=== PATIENT | female | born 1950 | race Caucasian/White ===

== ENCOUNTER 2023-11-09 12:00 | Emergency (ER) | payer MEDICARE, OTHER, SELFPAY ==
[2023-11-09] VITALS (21 sets, daily range): BP systolic 136; BP diastolic 90; PULSE 104–129; RESP 15–28; TEMP 36.4; O2SAT 89–99; BMI 17.5
--- NOTE | 2023-11-09 12:22 | ECG_ITS ---
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
--- NOTE | 2023-11-09 12:22 | XR_ITS ---
The [address] [address] Patient Name: DEVIKA LOPEZ MRN: [id number] date: 1950 Sex: F Assigned Patient Location: ER Current Patient Location: ER Accession/Order Number: [id number] Exam Date: 11/09/2023 12:53 Report Date: 11/09/2023 13:27 At the request of: MAREK HYDE Procedure: XR chest 1V EXAM: XR chest 1V HISTORY: Tachycardia COMPARISON: Chest study dated 11/23/2012 TECHNIQUE: AP view of the chest was obtained with portable technique at 12:53 PM. FINDINGS: Heart and mediastinal contours are unremarkable in appearance. No acute infiltrate or consolidations are seen. No obvious pneumothorax. Slight convexity of the dorsal spine to the right with mild degenerative changes present. XR/XR chest 1V IMPRESSION: No acute process seen in the chest. Electronically authenticated by: CAMDEN HOLLAND Date: 11/09/2023 13:27
--- NOTE | 2023-11-09 12:25 | ED.GENADUL1 ---
HPI - General Adult General Chief complaint: Arrhythmia/Palpitations Stated complaint: HIGH HEART RATE Time Seen by Provider: 11/09/23 12:16 Source: caregiver Mode of arrival: walk-in Limitations: no limitations History of Present Illness HPI narrative: 73-year-old female company by her niece presents to the emergency department from PCP office where she had her first visit today. She was sent here for evaluation because her heart rate was fast, approximately 140. The patient's niece reports that she has had some mild memory issues recently. She lives by herself. The patient herself does not seem to have any physical complaints other than some chronic back issues. The patient has lost about 30 pounds over the past year. Related Data Home Medications ?Medication ?Instructions ?Recorded ?Confirmed amlodipine 5 mg tablet (Norvasc) 5 mg PO DAILY 11/09/23 11/09/23 insulin aspar prot-insulin aspart 14 unit subcut QAM 11/09/23 11/09/23 100 unit/mL (70-30) subcutaneous pen (Novolog Mix 70-30FlexPen U-100) lisinopril 20 1 tab PO DAILY 11/09/23 11/09/23 mg-hydrochlorothiazide 12.5 mg tablet (Zestoretic) metformin 500 mg tablet 1,000 mg PO BID 11/09/23 11/09/23 simvastatin 20 mg tablet (Zocor) 20 mg PO DAILY 11/09/23 11/09/23 Allergies Allergy/AdvReac Type Severity Reaction Status Date / Time nkda Allergy Uncoded 11/09/23 12:22 Review of Systems ROS Narrative A ten point review of systems is negative except as noted above. [facility] Medical History (Updated 11/09/23 @ 15:21 by Niles Weaver MD) High cholesterol ?E78.00 - Pure hypercholesterolemia, unspecified (ICD-10) Hypertension ?I10 - Essential (primary) hypertension (ICD-10) Diabetes ?E11.9 - Type 2 diabetes mellitus without complications (ICD-10) Exam Narrative Exam Narrative: Nurses note and vital signs reviewed and patient is not hypoxic. General: The patient appears in no apparent distress. Patient is resting comfortably on cart. She is quite thin. Skin: Warm, dry, no pallor noted. There is no rash noted. Head: Normocephalic, atraumatic Eye: Normal conjunctiva, no drainage Ears, Nose, Mouth, and Throat: oral mucosa is moist. Nares patent. Cardiovascular: Regular Rate and Rhythm, mildly tachycardia Respiratory: Patient is in no distress, no accessory muscle use, lungs are clear to auscultation, no wheezing, rales or rhonchi Back: non-tender GI: no tenderness to palpation, no masses appreciated. No rebound, guarding, or rigidity noted. Musculoskeletal: The patient has no evidence of calf tenderness, no pitting edema, symmetrical pulses noted bilaterally Neurological: A&O x4, normal speech, upper and lower extremity strength intact Psychiatric: Cooperative Constitutional Vital Signs, click to edit/add: Last Vital Signs Temp 97.5 F L 11/09/23 12:15 Pulse 106 H 11/09/23 14:30 Resp 16 11/09/23 14:30 BP 136/90 11/09/23 12:15 Pulse Ox 98 11/09/23 14:30 O2 Del Method Room Air 11/09/23 12:15 Course Vital Signs Vital signs: Vital Signs Pulse Oximetry 99 11/09/23 12:10 Temperature 97.5 F L 11/09/23 12:15 Pulse Rate 106 H 11/09/23 14:30 Respiratory Rate 16 11/09/23 14:30 Blood Pressure 136/90 11/09/23 12:15 Pulse Oximetry 98 11/09/23 14:30 Oxygen Delivery Method Room Air 11/09/23 12:15 Medical Decision Making MDM Narrative Medical decision making narrative: Extensive workup here is negative except for elevated blood sugar. She has only been taking her metformin 1 pill twice a day instead of the prescribed 2 pills twice a day. This matter was discussed with the patient and her niece and she will be discharged home. I discussed the case with her PCP and follow-up is arranged for 1 week. Treatment diagnosis and follow-up were discussed thoroughly Differential Diagnosis Differential Diagnosis: Medication noncompliance, diabetes, thyroid disorder, UTI Lab Data Lab results reviewed: Yes I reviewed the patient's lab results Labs: Lab Results 11/09/23 11/09/23 11/09/23 Range/Units 12:32 12:38 14:10 WBC 6.7 (4.0-11.0) 10^3/uL RBC 4.80 (4.20-5.40) 10^6/uL Hgb 14.4 (12.0-16.0) g/dL Hct 42.8 (36.0-48.0) % MCV 89.2 (81.0-99.0) fL MCH 30.0 (26.7-34.0) pg MCHC 33.6 (29.9-35.2) g/dL RDW 12.1 (11.0-15.0) % Plt Count 251 (150-450) 10^3/uL MPV 10.9 (9.5-13.5) fL Neut % (Auto) 48.5 (43.0-75.0) % Lymph % (Auto) 42.4 (20.5-60.0) % [place] % (Auto) 8.0 (1.7-12.0) % Eos % (Auto) 0.6 L (0.9-7.0) % Baso % (Auto) 0.4 (0.2-2.0) % Neut # (Auto) 3.3 (1.4-6.5) 10^3/uL Lymph # (Auto) 2.9 (1.2-3.8) 10^3/uL [place] # (Auto) 0.5 (0.3-0.8) 10^3/uL Eos # (Auto) 0.0 (0.0-0.7) 10^3/uL Baso # (Auto) 0.0 (0.0-0.1) 10^3/uL Abs Immat Gran (auto) 0.01 (0.00-0.03) 10^3/uL Imm/Tot Granulo (auto) 0.1 (0.0-0.5) % Sodium 137 (136-145) mmol/L Potassium 4.0 (3.5-5.1) mmol/L Chloride 99 (98-107) mmol/L Carbon Dioxide 30.1 (21.0-32.0) mmol/L Anion Gap 11.9 BUN 11.0 (7.0-18.0) mg/dL Creatinine 0.67 (0.55-1.02) mg/dL Est GFR ( Amer) >60 (>=60) Est GFR (Non-Af Amer) >60 (>=60) BUN/Creatinine Ratio 16.4 Glucose 426 H (74-106) mg/dL Estimat Average Glucose 338 mg/dL Hemoglobin A1c 13.4 H (4.5-6.2) % Calcium 9.6 (8.5-10.1) mg/dL Total Bilirubin 0.9 (0.2-1.0) mg/dL Direct Bilirubin 0.1 (0.0-0.2) mg/dL AST 15 (15-37) U/L ALT 26 (14-59) U/L Alkaline Phosphatase 113 (46-116) U/L Total Protein 6.8 (6.4-8.2) g/dL Albumin 3.1 L (3.4-5.0) g/dL Globulin 3.7 g/dL Albumin/Globulin Ratio 0.8 Triglycerides 49 (<=150) mg/dL Cholesterol 203 H (<=200) mg/dL LDL Cholesterol, Calc 131.0 mg/dL VLDL Cholesterol 9.8 mg/dL HDL Cholesterol 63 H (40-60) mg/dL Cholesterol/HDL Ratio 3.2 TSH 2.797 (0.358-3.740) uIU/mL Free T4 1.21 (0.76-1.46) ng/dL Free T3 2.36 (2.18-3.98) pg/mL Urine Color Yellow (YELLOW) Urine Clarity Clear (CLEAR) Urine pH 5.5 (5.0-9.0) Ur Specific [place] 1.025 (1.005-1.025) Urine Protein Negative (NEG/TRACE) mg/dL Urine Glucose (UA) >=1000 A (NEGATIVE) mg/dL Urine Ketones 15 A (NEGATIVE) mg/dL Urine Occult Blood Negative (NEGATIVE) Urine Nitrite Negative (NEGATIVE) Urine Bilirubin Negative (NEGATIVE) Urine Urobilinogen 0.2 (0.2-1.0) EU/dL Ur Leukocyte Esterase Negative (NEGATIVE) Urine RBC None seen (0-2) #/HPF Urine WBC None seen (NONE SEEN) #/HPF Ur Squamous Epith Cells Few A (NONE/RARE) #/LPF Urine Bacteria None seen (NONE SEEN) #/HPF Urine Mucus None seen (NONE SEEN) Ur Random Creatinine 62.91 (20.00-300.00) mg/dL Ur Random Microalbumin 2.0 (<=30.0) mg/dL Microalb/Creat Ratio 31.7 H (0.0-29.9) mg/g POC Glucose 395 H (74-106) mg/dL Imaging Data Chest x-ray: Radiologist's impression: ITS Impressions Chest X-Ray 11/09/23 12:22 IMPRESSION: No acute process seen in the chest. Electronically authenticated by: CAMDEN HOLLAND Date: 11/09/2023 13:[address] 11/09/23 12:22 IMPRESSION: 1. No acute large vascular territory infarct or acute intracranial hemorrhage. 2. Ventriculomegaly slightly out of proportion of the sulci favored to relate to central predominant volume loss with no overt evidence for obstructing hydrocephalus. Direct comparison with priors would be of benefit to evaluate for interval change. Electronically authenticated by: ZEESHAN SHI Date: 11/09/2023 13:20 ECG Data Attestation: I personally reviewed and interpreted this ECG as follows: (EKG on my interpretation shows normal sinus rhythm without acute change) Discharge Plan Discharge Stand Alone Forms: Portal Instructions Chief Complaint: Arrhythmia/Palpitations Clinical Impression: Hyperglycemia Patient Disposition: Home, Self-Care Time of Disposition Decision: 15:20 Condition: Good Mode of Transportation: Private Vehicle Prescriptions / Home Meds: No Action metformin 500 mg tablet 1,000 mg PO BID amlodipine [Norvasc] 5 mg tablet 5 mg PO DAILY lisinopril-hydrochlorothiazide [Zestoretic] 20-12.5 mg tablet 1 tab PO DAILY simvastatin [Zocor] 20 mg tablet 20 mg PO DAILY insulin asp prt-insulin aspart [Novolog Mix 70-30FlexPen U-100] 100 unit/mL (70-30) insulin pen 14 unit subcut QAM Print Language: Polish Instructions: Diabetic Hyperglycemia (ED), Diabetes and Nutrition (ED) Referrals: Lizett Wolff NP [Primary Care Provider] - 1 week
[2023-11-09 12:39] LABS: Glucometer 395 mg/dL (74-106)
[2023-11-09 12:46] LABS: Basophils Percent Auto 0.4 % (0.2-2.0); Eosinophils Percent Auto 0.6 % (0.9-7.0); Hematocrit 42.8 % (36.0-48.0); Hemoglobin 14.4 g/dL (12.0-16.0); Immature Granulocytes Abs Auto 0.01 10^3/uL (0.00-0.03); Immature Granulocytes Pct Auto 0.1 % (0.0-0.5); Lymphocytes Absolute Auto 2.9 10^3/uL (1.2-3.8); Lymphocytes Percent Auto 42.4 % (20.5-60.0); Mean Corpuscular HGB Conc 33.6 g/dL (29.9-35.2); Mean Corpuscular Volume 89.2 fL (81.0-99.0); Mean Platelet Volume 10.9 fL (9.5-13.5); Monocytes Absolute Auto 0.5 10^3/uL (0.3-0.8); Neutrophils Absolute Auto 3.3 10^3/uL (1.4-6.5); Neutrophils Percent Auto 48.5 % (43.0-75.0); Platelet Count 251 10^3/uL (150-450); Red Cell Distribution Width 12.1 % (11.0-15.0); White Blood Count 6.7 10^3/uL (4.0-11.0)
[2023-11-09 13:09] LABS: Estimated Average Glucose 338 mg/dL; Glycohemoglobin A1C 13.4 % (4.5-6.2)
[2023-11-09 13:37] LABS: Alanine Aminotransferase 26 U/L (14-59); Albumin Globulin Ratio 0.8; Albumin Level 3.1 g/dL (3.4-5.0); Alkaline Phosphatase 113 U/L (46-116); Anion Gap 11.9; Aspartate Amino Transferase 15 U/L (15-37); BUN Creatinine Ratio 16.4; Bilirubin Direct 0.1 mg/dL (0.0-0.2); Bilirubin Total 0.9 mg/dL (0.2-1.0); Calcium 9.6 mg/dL (8.5-10.1); Carbon Dioxide 30.1 mmol/L (21.0-32.0); Chloride 99 mmol/L (98-107); Chol HDL Ratio 3.2; Cholesterol 203 mg/dL (<=200); Estimated GFR (African America >60 (>=60); Estimated GFR (Non-African Ame >60 (>=60); Free T3 2.36 pg/mL (2.18-3.98); Globulin 3.7 g/dL; Glucose 426 mg/dL (74-106); HDL Cholesterol 63 mg/dL (40-60); Sodium 137 mmol/L (136-145); Thyroid Stimulating Hormone 2.797 uIU/mL (0.358-3.740); Total Protein 6.8 g/dL (6.4-8.2); Triglycerides 49 mg/dL (<=150); VLDL CHOLESTEROL 9.8 mg/dL
[2023-11-09 13:41] LABS: Free T4 1.21 ng/dL (0.76-1.46)
[2023-11-09 14:36] LABS: Bilirubin Urine NEGATIVE (NEGATIVE); Blood Urine NEGATIVE (NEGATIVE); Clarity Urine CLEAR (CLEAR); Color Urine YELLOW (YELLOW); Glucose Urine UA >=1000 mg/dL (NEGATIVE); Ketones Urine 15 mg/dL (NEGATIVE); Leukocyte Esterase Urine NEGATIVE (NEGATIVE); Nitrite Urine NEGATIVE (NEGATIVE); Protein Urine NEGATIVE (NEG/TRACE); Specific Gravity Urine 1.025 (1.005-1.025); Urobilinogen Urine 0.2 EU/dL (0.2-1.0); pH Urine 5.5 (5.0-9.0)
[2023-11-09 14:42] LABS: Creatinine Urine Random 62.91 mg/dL (20.00-300.00); Microalbum Creatinine Ratio Ur 31.7 mg/g (0.0-29.9)
[2023-11-09 14:47] LABS: Bacteria Urine NONE SEEN #/HPF (NONE SEEN); RBC Urine NONE SEEN #/HPF (0-2); WBC Urine NONE SEEN #/HPF (NONE SEEN)
[2023-11-09 14:48] LABS: Mucus Urine NONE SEEN (NONE SEEN); Squamous Epithelial Cell Urine FEW #/LPF (NONE/RARE)
== END 2023-11-09 15:30 | disposition home or self-care (01) ==
PROVIDERS: Emergency Provider Emergency Medicine; PCP Nurse Practitioner
DX: E11.65 Type 2 diabetes mellitus with hyperglycemia (principal); E78.00 Pure hypercholesterolemia, unspecified; I10 Essential (primary) hypertension; Z79.899 Other long term (current) drug therapy; Z79.84 Long term (current) use of oral hypoglycemic drugs; Z79.4 Long term (current) use of insulin
CPT/HCPCS: 36415; 36416; 70450; 71045; 80048; 80061; 80076; 81001; 82043; 82306; 82570; 82607; 82948; 83036; 84439; 84443; 84481; 85025; 93005; 99285

== ENCOUNTER 2024-01-13 14:19 | Emergency (ER) | payer MEDICARE, OTHER, SELFPAY ==
[2024-01-13] VITALS (11 sets, daily range): BP systolic 143–170; BP diastolic 66–126; PULSE 91–100; TEMP 36.6; O2SAT 96–99; BMI 19.5
--- NOTE | 2024-01-13 14:23 | ECG_ITS ---
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
[2024-01-13 14:30] LABS: Glucometer 61 mg/dL (74-106)
--- NOTE | 2024-01-13 14:33 | ED.GENADUL1 ---
HPI HPI - General Adult General Chief complaint: Altered Mental Status Stated complaint: LOW SUGAR Time Seen by Provider: 01/13/24 14:19 Source: patient and EMR Mode of arrival: ambulance Limitations: no limitations History of Present Illness HPI narrative: Patient presents to ED complaining of altered mentation. Her family went to check on her this morning and found her altered and said her glucose monitor was reading low. They called EMS and when they arrived they said her sugar was in the 30s. She was given D10 and her sugar improved to the 90s. She did have some incontinence of urine at some point from the low blood sugar. No known seizure activity. She says she takes her insulin at night she thought she ate but is not sure how much she really ate. Right now she is alert and oriented and states she is feeling better her sugar is already starting to decrease again and is at 63. We got her some orange juice and ordered her for some food. She has no complaints. No chest pain no abdominal pain no nausea vomiting.Family is unsure how long her blood sugar was low for because they did not see her until this morning. Related Data Home Medications ?Medication ?Instructions ?Recorded ?Confirmed lisinopril 20 1 tab PO DAILY 11/09/23 01/13/24 mg-hydrochlorothiazide 12.5 mg tablet (Zestoretic) metformin 500 mg tablet 1,000 mg PO BID 11/09/23 01/13/24 simvastatin 20 mg tablet (Zocor) 20 mg PO DAILY 11/09/23 01/13/24 amlodipine 2.5 mg tablet 2.5 mg PO DAILY 01/13/24 01/13/24 insulin glargine 100 unit/mL (3 26 unit subcut .hs 01/13/24 01/13/24 mL) subcutaneous pen (Basaglar KwikPen U-100 Insulin) Allergies Allergy/AdvReac Type Severity Reaction Status Date / Time No Known Drug Allergies Allergy Verified 01/13/24 14:24 Opioid HPI Opioid Management Most Recent Opioid Data: No Data to Display Review of Systems ROS Status of ROS 10 or more systems reviewed and unremarkable except as noted in history and below [facility] Medical History (Updated 01/13/24 @ 16:27 by Georgia Mckeon DO) High cholesterol ?E78.00 - Pure hypercholesterolemia, unspecified (ICD-10) Hypertension ?I10 - Essential (primary) hypertension (ICD-10) Diabetes ?E11.9 - Type 2 diabetes mellitus without complications (ICD-10) Exam Narrative Exam Narrative: Time Seen: [] Vital Signs: [Per nurse's notes.] General: [Alert] Skin: [Warm, dry, no rash.] Head: [Normocephalic, atraumatic.] Neck: [Supple, trachea midline.] Eye: [Pupils are equal, round and reactive to light, extraocular movements are intact, normal conjunctiva.] Ears, nose, mouth and throat: oral mucosa moist. Cardiovascular: [Regular rate and rhythm, no murmur.] Respiratory: [Lungs are clear to auscultation, respirations are non-labored, breath sounds are equal.] Chest wall: [No tenderness, no deformity.] Gastrointestinal: [Soft, nontender, non distended, normal bowel sounds.] MSK: 5 out of 5 muscle strength x 4 extremities no calf pain or edema Lymphatics: [No lymphadenopathy.] Psychiatric: [Cooperative, appropriate mood & affect.] Neurological: [Alert and oriented to person, place, time, and situation, no focal neurological deficit observed.] Constitutional Vital Signs, click to edit/add: Last Vital Signs Temp 97.9 F 01/13/24 14:41 Pulse 100 H 01/13/24 15:01 Resp 20 01/13/24 15:01 BP 145/92 H 01/13/24 15:01 Pulse Ox 98 01/13/24 15:01 O2 Del Method Room Air 01/13/24 14:19 Course Vital Signs Vital signs: Vital Signs Pulse Rate 100 H 01/13/24 14:19 Respiratory Rate 18 01/13/24 14:19 Blood Pressure 170/66 H 01/13/24 14:19 Pulse Oximetry 99 01/13/24 14:19 Oxygen Delivery Method Room Air 01/13/24 14:19 Temperature 97.9 F 01/13/24 14:41 Pulse Rate 100 H 01/13/24 15:01 Respiratory Rate 20 01/13/24 15:01 Blood Pressure 145/92 H 01/13/24 15:01 Pulse Oximetry 98 01/13/24 15:01 Oxygen Delivery Method Room Air 01/13/24 14:19 Medical Decision Making MDM Narrative Medical decision making narrative: Patient's labs were nonacute. Urine is negative for infection. Blood sugar has come up nicely after the D10, orange juice and food.Patient's blood sugar is now in the 200s. She thinks she took her morning medication but is in the 100% sure. I instructed the patient to follow-up closely with her family nurse practitioner. Please check blood sugar before giving insulin at night. Make sure she eats before bed if she is taking her insulin at night. Family states that she was having a hard time controlling her blood sugars when she was taking insulin during the day which is why they switched her to taking insulin at night. Return to ED if worsening symptoms. Patient and Family comfortable care plan for home Differential Diagnosis Differential Diagnosis: Hypoglycemia, UTI, electrolyte abnormality Medical Records Medical records reviewed: Yes I reviewed the patient's medical records Lab Data Lab results reviewed: Yes I reviewed the patient's lab results Labs: Lab Results 01/13/24 01/13/24 01/13/24 Range/Units 14:29 14:47 15:12 WBC 9.8 (4.0-11.0) 10^3/uL RBC 4.77 (4.20-5.40) 10^6/uL Hgb 14.3 (12.0-16.0) g/dL Hct 44.4 (36.0-48.0) % MCV 93.1 (81.0-99.0) fL MCH 30.0 (26.7-34.0) pg MCHC 32.2 (29.9-35.2) g/dL RDW 12.8 (11.0-15.0) % Plt Count 255 (150-450) 10^3/uL MPV 10.1 (9.5-13.5) fL Neut % (Auto) 70.2 (43.0-75.0) % Lymph % (Auto) 25.0 (20.5-60.0) % [place] % (Auto) 4.4 (1.7-12.0) % Eos % (Auto) 0.0 L (0.9-7.0) % Baso % (Auto) 0.2 (0.2-2.0) % Neut # (Auto) 6.9 H (1.4-6.5) 10^3/uL Lymph # (Auto) 2.5 (1.2-3.8) 10^3/uL [place] # (Auto) 0.4 (0.3-0.8) 10^3/uL Eos # (Auto) 0.0 (0.0-0.7) 10^3/uL Baso # (Auto) 0.0 (0.0-0.1) 10^3/uL Abs Immat Gran (auto) 0.02 (0.00-0.03) 10^3/uL Imm/Tot Granulo (auto) 0.2 (0.0-0.5) % Sodium 137 (136-145) mmol/L Potassium 3.9 (3.5-5.1) mmol/L Chloride 99 (98-107) mmol/L Carbon Dioxide 30.9 (21.0-32.0) mmol/L Anion Gap 11.0 BUN 13.0 (7.0-18.0) mg/dL Creatinine 0.42 L (0.55-1.02) mg/dL Est GFR ( Amer) >60 (>=60) Est GFR (Non-Af Amer) >60 (>=60) BUN/Creatinine Ratio 31.0 Glucose 81 (74-106) mg/dL Calcium 9.2 (8.5-10.1) mg/dL Total Bilirubin 1.1 H (0.2-1.0) mg/dL AST 24 (15-37) U/L ALT 21 (14-59) U/L Alkaline Phosphatase 117 H (46-116) U/L Total Protein 7.5 (6.4-8.2) g/dL Albumin 3.4 (3.4-5.0) g/dL Globulin 4.1 g/dL Albumin/Globulin Ratio 0.8 Urine Color (YELLOW) Urine Clarity (CLEAR) Urine pH (5.0-9.0) Ur Specific [place] (1.005-1.025) Urine Protein (NEG/TRACE) mg/dL Urine Glucose (UA) (NEGATIVE) mg/dL Urine Ketones (NEGATIVE) mg/dL Urine Occult Blood (NEGATIVE) Urine Nitrite (NEGATIVE) Urine Bilirubin (NEGATIVE) Urine Urobilinogen (0.2-1.0) EU/dL Ur Leukocyte Esterase (NEGATIVE) POC Glucose 61 L 91 (74-106) mg/dL 01/13/24 01/13/24 Range/Units 15:55 16:17 WBC (4.0-11.0) 10^3/uL RBC (4.20-5.40) 10^6/uL Hgb (12.0-16.0) g/dL Hct (36.0-48.0) % MCV (81.0-99.0) fL MCH (26.7-34.0) pg MCHC (29.9-35.2) g/dL RDW (11.0-15.0) % Plt Count (150-450) 10^3/uL MPV (9.5-13.5) fL Neut % (Auto) (43.0-75.0) % Lymph % (Auto) (20.5-60.0) % [place] % (Auto) (1.7-12.0) % Eos % (Auto) (0.9-7.0) % Baso % (Auto) (0.2-2.0) % Neut # (Auto) (1.4-6.5) 10^3/uL Lymph # (Auto) (1.2-3.8) 10^3/uL [place] # (Auto) (0.3-0.8) 10^3/uL Eos # (Auto) (0.0-0.7) 10^3/uL Baso # (Auto) (0.0-0.1) 10^3/uL Abs Immat Gran (auto) (0.00-0.03) 10^3/uL Imm/Tot Granulo (auto) (0.0-0.5) % Sodium (136-145) mmol/L Potassium (3.5-5.1) mmol/L Chloride (98-107) mmol/L Carbon Dioxide (21.0-32.0) mmol/L Anion Gap BUN (7.0-18.0) mg/dL Creatinine (0.55-1.02) mg/dL Est GFR ( Amer) (>=60) Est GFR (Non-Af Amer) (>=60) BUN/Creatinine Ratio Glucose (74-106) mg/dL Calcium (8.5-10.1) mg/dL Total Bilirubin (0.2-1.0) mg/dL AST (15-37) U/L ALT (14-59) U/L Alkaline Phosphatase (46-116) U/L Total Protein (6.4-8.2) g/dL Albumin (3.4-5.0) g/dL Globulin g/dL Albumin/Globulin Ratio Urine Color Lt. yellow (YELLOW) Urine Clarity Clear (CLEAR) Urine pH 5.5 (5.0-9.0) Ur Specific [place] 1.020 (1.005-1.025) Urine Protein Negative (NEG/TRACE) mg/dL Urine Glucose (UA) Negative (NEGATIVE) mg/dL Urine Ketones 15 A (NEGATIVE) mg/dL Urine Occult Blood Negative (NEGATIVE) Urine Nitrite Negative (NEGATIVE) Urine Bilirubin Negative (NEGATIVE) Urine Urobilinogen 1.0 (0.2-1.0) EU/dL Ur Leukocyte Esterase Negative (NEGATIVE) POC Glucose 212 H (74-106) mg/dL ECG Data Attestation: I personally reviewed and interpreted this ECG as follows: Interpretation: EKG INTERPRETATION Time: []1426 Rate: []93 Rhythm: _ []Normal sinus rhythm ST segments: _ [] T waves: _ [] Ectopy: _ [] P wave/WA interval: _ [] QRS interval: _ [] QT interval: _ [] Comparison: _ [] Comparison EKG date: [] Performed by: [self]No acute ST elevation or depression right axis deviation Discharge Plan Discharge Stand Alone Forms: Portal Instructions Chief Complaint: Altered Mental Status Clinical Impression: Hypoglycemia Patient Disposition: Home, Self-Care Time of Disposition Decision: 16:27 Mode of Transportation: Private Vehicle Prescriptions / Home Meds: No Action metformin 500 mg tablet 1,000 mg PO BID lisinopril-hydrochlorothiazide [Zestoretic] 20-12.5 mg tablet 1 tab PO DAILY simvastatin [Zocor] 20 mg tablet 20 mg PO DAILY insulin glargine [Basaglar KwikPen U-100 Insulin] 100 unit/mL (3 mL) insulin pen 26 unit SUBCUT .hs amlodipine 2.5 mg tablet 2.5 mg PO DAILY Print Language: Danish Instructions: Hypoglycemia in a Person with Diabetes (ED) Referrals: Lizett Wolff NP [Primary Care Provider] - 1 week
[2024-01-13] MEDS: 0.9 % SODIUM CHLORIDE 1,000 ML 1000 ML IV (14:52)
[2024-01-13 14:57] LABS: Basophils Percent Auto 0.2 % (0.2-2.0); Hematocrit 44.4 % (36.0-48.0); Hemoglobin 14.3 g/dL (12.0-16.0); Immature Granulocytes Abs Auto 0.02 10^3/uL (0.00-0.03); Immature Granulocytes Pct Auto 0.2 % (0.0-0.5); Lymphocytes Absolute Auto 2.5 10^3/uL (1.2-3.8); Mean Corpuscular HGB Conc 32.2 g/dL (29.9-35.2); Mean Corpuscular Volume 93.1 fL (81.0-99.0); Mean Platelet Volume 10.1 fL (9.5-13.5); Monocytes Absolute Auto 0.4 10^3/uL (0.3-0.8); Monocytes Percent Auto 4.4 % (1.7-12.0); Neutrophils Absolute Auto 6.9 10^3/uL (1.4-6.5); Neutrophils Percent Auto 70.2 % (43.0-75.0); Platelet Count 255 10^3/uL (150-450); Red Blood Count 4.77 10^6/uL (4.20-5.40); Red Cell Distribution Width 12.8 % (11.0-15.0); White Blood Count 9.8 10^3/uL (4.0-11.0)
[2024-01-13 15:13] LABS: Glucometer 91 mg/dL (74-106)
[2024-01-13 15:20] LABS: Alanine Aminotransferase 21 U/L (14-59); Albumin Globulin Ratio 0.8; Albumin Level 3.4 g/dL (3.4-5.0); Alkaline Phosphatase 117 U/L (46-116); Aspartate Amino Transferase 24 U/L (15-37); Bilirubin Total 1.1 mg/dL (0.2-1.0); Calcium 9.2 mg/dL (8.5-10.1); Carbon Dioxide 30.9 mmol/L (21.0-32.0); Chloride 99 mmol/L (98-107); Estimated GFR (African America >60 (>=60); Estimated GFR (Non-African Ame >60 (>=60); Globulin 4.1 g/dL; Glucose 81 mg/dL (74-106); Potassium 3.9 mmol/L (3.5-5.1); Sodium 137 mmol/L (136-145); Total Protein 7.5 g/dL (6.4-8.2)
[2024-01-13 16:03] LABS: Bilirubin Urine NEGATIVE (NEGATIVE); Blood Urine NEGATIVE (NEGATIVE); Clarity Urine CLEAR (CLEAR); Color Urine LT. YELLOW (YELLOW); Glucose Urine UA NEGATIVE (NEGATIVE); Ketones Urine 15 mg/dL (NEGATIVE); Leukocyte Esterase Urine NEGATIVE (NEGATIVE); Nitrite Urine NEGATIVE (NEGATIVE); Protein Urine NEGATIVE (NEG/TRACE); pH Urine 5.5 (5.0-9.0)
[2024-01-13 16:04] LABS: Urine Microscopic Indicated NO
[2024-01-13 16:21] LABS: Glucometer 212 mg/dL (74-106)
== END 2024-01-13 16:51 | disposition home or self-care (01) ==
PROVIDERS: Emergency Provider Emergency Medicine; PCP Nurse Practitioner
DX: E11.649 Type 2 diabetes mellitus with hypoglycemia without coma (principal); Z79.4 Long term (current) use of insulin
CPT/HCPCS: 36415; 36416; 80053; 81003; 82948; 85025; 93005; 96360; 99285

== ENCOUNTER 2024-08-17 16:51 | Emergency (ER) | payer OTHER, SELFPAY ==
[2024-08-17 16:59] VITALS: BP 142/95; PULSE 110; TEMP 36.3; O2SAT 98; BMI 18.2
--- OUTSIDE RECORDS SUMMARY | 2024-08-17 17:05 | XMS_ITS | CCD ---
Author Organization [facility] Care Team Providers Care Food Safety Scientist Name Role Phone LIZETT WOLFF Primary Care Unavailable GARETT CUENCA Attending Unavailable JOSÉ, SENDY Attending Unavailable JSOÉ, SENDY Referring Unavailable LIZETT WOLFF Primary Care Unavailable SENDY KUMAR Attending Unavailable JOSÉ, SENDY Referring Unavailable LIZETT WOLFF Primary Care Unavailable Familia Wade MD Primary Care Provider [phone] New MAINTENANCE AND OPERATIONS SUPERVISOR, Lizett Unavailable Cristela Luna Unavailable Sena Luis MA Unavailable Unavailable AICHHOLZ, LIZETT Attending Unavailable AICHHOLZ, LIZETT Attending Unavailable AICHHOLZ, LIZETT Attending Unavailable AICHHOLZ, LIZETT Attending Unavailable AICHHOLZ, LIZETT Attending Unavailable LOPEZ TIJERINA Attending Unavailable AICHSOPHIEZ, LIZETT Attending Unavailable DAVID SEARS Attending Unavailable LOPEZ TIJERINA Referring Unavailable LOPEZ TIJERINA Attending Unavailable NEW, LIZETT Attending Unavailable MECCA NAIDU Attending Unavailable Sada Andrews LPN Unavailable Unavailable Medications Current Medications Medication Drug Class(es) Dates Sig (Normalized) Sig (Original) amLODIPine 2.5 mg oral tablet (19 sources) Dihydropyridine Calcium Channel Ruth Start: 02-10-2024 End: 05-12-2024 take 1 tablet by mouth once daily amLODIPine (Norvasc) 2.5 MG tablet Indications: Primary hypertension (CMS/HCC) Take 1 tablet (2.5 mg) by mouth Daily 30 tablet 5 04/12/2024 05/12/2024 Active Blood Glucose Monitoring Suppl (True Metrix Air Glucose Meter) w/Device kit (17 sources) Start: 02-10-2024 Blood Glucose Monitoring Suppl (True Metrix Air Glucose Meter) w/Device kit Indications: Type 2 diabetes mellitus treated with insulin ([facility]/HCC) 1 kit Daily 1 kit 02/10/2024 Active Continuous Glucose Manufacturing Plant Manager (Dexcom G7 Manufacturing Plant Manager) device (7 sources) Start: 02-17-2024 End: 05-17-2024 Continuous Glucose Manufacturing Plant Manager (Dexcom G7 Manufacturing Plant Manager) device Indications: Type 2 diabetes mellitus treated with insulin ([facility]) , 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 ([facility]) 1 each Daily 1 each 3 02/17/2024 05/17/2024 Active donepezil hydrochloride 10 mg oral tablet (11 sources) Start: 06-23-2024 End: 10-21-2024 take 1 tablet by mouth at bedtime donepezil (Aricept) 10 MG tablet Indications: Moderate Alzheimer's dementia, unspecified timing of dementia onset, unspecified whether behavioral, psychotic, or mood disturbance or anxiety (CMS/[facility]) Take 1 tablet (10 mg) by mouth at bedtime for 7 days 7 tablet 07/05/2024 Active Start: 05-23-2024 End: 05-23-2025 take 1 tablet by mouth at bedtime donepezil (Aricept) 5 MG tablet Indications: Moderate Alzheimer's dementia, unspecified timing of dementia onset, unspecified whether behavioral, psychotic, or mood disturbance or anxiety (CMS/HCC) Take 1 tablet (5 mg) by mouth at bedtime 30 tablet 2 05/23/2024 06/23/2024 Discontinued (Dose adjustment) 3 ml insulin aspart, human 100 unt/ml cartridge (5 sources) Insulin Analog insulin aspart (NovoLOG, Fiasp) 100 UNIT/ML patient supplied pump Inject 3 Units under the skin continuously Active 3 ml insulin glargine 100 unt/ml pen injector (17 sources) Insulin Analog Start: 02-17-20 End: 05-15-20 insulin glargine (Basaglar KwikPen) 100 UNIT/ML pen Indications: Type 2 diabetes mellitus treated with insulin ([facility]) Inject 17 Units under the skin Daily 5 each 5 02/17/2024 Active lisinopril 20 mg oral tablet (19 sources) Angiotensin Converting Enzyme Inhibitor Start: 02-10-20 End: 05-12-20 take 1 tablet by mouth once daily lisinopril 20 MG tablet Indications: Primary hypertension (CMS/HCC) Take 1 tablet (20 mg) by mouth Daily 30 tablet 5 04/12/2024 05/12/2024 Active metFORMIN hydrochloride 850 mg oral tablet (19 sources) Biguanide Start: 02-10-20 End: 05-12-20 take 1 tablet by mouth in the morning metFORMIN (Glucophage) 850 MG tablet Indications: Type 2 diabetes mellitus treated with insulin (CMS/HCC) Take 1 tablet (850 mg) by mouth in the morning and 1 tablet (850 mg) in the evening. Take with meals. 60 tablet 04/12/2024 05/12/2024 Active simvastatin 20 mg oral tablet (19 sources) HMG-CoA Reductase Inhibitor Start: 02-10-20 End: 05-12-20 take 1 tablet by mouth at bedtime simvastatin (Zocor) 20 MG tablet Indications: Mixed hyperlipidemia (CMS/HCC) Take 1 tablet (20 mg) by mouth at bedtime 30 tablet 5 04/12/2024 05/12/2024 Active Problems Active Problems Problem Classification Problem Date Documented Da te Episodic/Chronic Delirium, dementia, and amnestic and other cognitive disorders (17 sources) Alzheimer's disease; Translations: [Alzheimer's disease, unspecified] Onset: 05-24-2024 05-23-2024 Chronic Diabetes mellitus with complications (20 sources) 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; Translations: [Type 2 diabetes mellitus with hypoglycemia without coma] Onset: 01-06-2024 01-06-2024 Chronic Diabetes mellitus without complication (20 sources) Insulin treated type 2 diabetes mellitus; Translations: [Type 2 diabetes mellitus without complications] Onset: 11-09-2023 11-09-2023 Chronic Disorders of lipid metabolism (20 sources) Mixed hyperlipidemia; Translations: [Mixed hyperlipidemia] Onset: 11-09-2023 11-09-2023 Chronic E Codes: Fall (1 source) Unspecified fall, initial encounter; Translations: [Unspecified fall, initial encounter] Onset: 12-16-2023 Episodic Essential hypertension (20 sources) Essential hypertension; Translations: [Essential (primary) hypertension] Onset: 11-09-2023 11-09-2023 Chronic Mood disorders (2 sources) Recurrent major depressive episodes, mild ; Translations: [Major depressive disorder, recurrent, mild] 05-05-2024 Chronic Nutritional deficiencies (9 sources) Deficiency of macronutrients; Translations: [Unspecified protein-calorie malnutrition] Onset: 05-24-2024 05-24-2024 Chronic Other endocrine disorders (1 source) Hypoglycemia, unspecified; Translations: [Hypoglycemia, unspecified] Onset: 12-16-2023 Chronic Syncope (1 source) Syncope and collapse; Translations: [Syncope and collapse] Onset: 12-16-2023 Episodic Unclassified (1 source) Low Blood Sugar - Symptomatic Onset: 12-16-2023 Unclassified (1 source) EMS Onset: 12-16-2023 Past or Other Problems Problem Classification Problem Date Documented Date Episodic/Chronic Cardiac dysrhythmias (17 sources) Tachycardia; Translations: [Tachycardia, unspecified] Onset: 11-09-2023 11-09-2023 Episodic Developmental disorders (2 sources) Below average intellect; 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] 05-05-2024 Episodic Mood disorders (17 sources) Mood disorders Onset: 12-07-2023 12-07-2023 Nutritional deficiencies (17 sources) Vitamin deficiency; Translations: [Vitamin deficiency, unspecified] Onset: 11-09-2023 11-09-2023 Episodic Other fractures (17 sources) Closed fracture of roof of acetabulum; Translations: [Nondisplaced dome fracture of left acetabulum, initial encounter for closed fracture] Onset: 11-09-2023 Resolved: 11-09-2023 11-09-2023 Episodic Other nutritional; endocrine; and metabolic disorders (19 sources) Unintentional weight loss; Translations: [Abnormal weight loss] Onset: 11-09-2023 11-09-2023 Episodic Other screening for suspected conditions (not mental disorders or infectious disease) (20 sources) Patient encounter status; Translations: [Other specified counseling] Onset: 11-16-2023 11-16-2023 Episodic Residual codes; unclassified (17 sources) Colon cancer screening declined; Translations: [Procedure and treatment not carried out because of patient's decision for unspecified reasons] Onset: 11-16-2023 11-16-2023 Episodic Residual codes; unclassified (19 sources) Memory impairment; Translations: [Other amnesia] Onset: 02-10-2024 Resolved: 07-21-2024 02-10-2024 Episodic Residual codes; unclassified (2 sources) Amnesia; Translations: [Other amnesia] 04-13-2024 Episodic Unclassified (17 sources) Onset: 02-03-2024 02-03-2024 Results Test Name Value Interpretation Reference Range Facil ity MR BRAIN W AND WO CONTRAST ( ROUTINE)on 04-14-2024 MR BRAIN W AND WO CONTRAST (ROUTINE) MR - MRI BRAIN W WO INDICATION: Chronic memory loss, confusion COMPARISON: None. TECHNIQUE: Sagittal T1, axial T2, axial T2* GRE, axial FLAIR, axial DWI sequences of the brain were acquired. Postcontrast axial and coronal T1 sequences following 4.5 cc of Vueway contrast. FINDINGS: No diffusion abnormality is seen. CEREBRUM: There is mild cerebral volume loss. No mass lesion or signal alteration. CEREBELLUM: Normal. BRAINSTEM: Increased T2/FLAIR signal in the central m[place] is visible. VENTRICLES AND EXTRA-AXIAL SPACES: The ventricles are prominent in size related to volume loss. There are no extra-axial fluid collections. MAJOR ARTERIES/DURAL SINUSES: Patent. SKULL/SCALP: Normal. PARANASAL SINUSES AND MASTOID AIR CELLS: Normal. OTHER: No pathologic enhancement is seen post IV contrast infusion. IMPRESSION: Cerebral volume loss. Chronic small vessel ischemic disease in the central m[place]. Dictated on: 04/14/2024 2:42 PM This report has been electronically signed and approved by the interpreting Radiologist. Electronically Signed Todd Castellanos D.O. 2024-04-14 15:36:49 Normal Not Available BASIC METABOLIC PANLon 12-15 Anion gap [Moles/Vol] 8 mmol/L Normal 5-15 [facility] Comment on above: Performed By: #### 1 9123-9, 79926-9, BMP, CBCA #### [facility] ([id number]) [address] [place] [address] 33537 Calcium [Mass/Vol] 9.5 mg/dL Normal 8.5-10.5 [facility] Comment on above: Performed By: #### 1 9123-9, 30887-5, BMP, CBCA #### [facility] ([id number]) [address] [place] [address] 31110 Chloride [Moles/Vol] 99 mmol/L Normal 98-109 [facility] Comment on above: Performed By: #### 1 9123-9, 77039-9, LEATHA, CBCA #### [facility] ([id number]) [address] [place] [address] 24252 CO2 [Moles/Vol] 30 mmol/L Normal 22-32 [facility] Comment on above: Performed By: #### 1 9123-9, 49547-3, BMP, CBCA #### [facility] ([id number]) [address] [place] [address] 95587 Creatinine [Mass/Vol] 0.52 mg/dL Normal 0.40-1.00 [facility] Comment on above: Result Comment: METH OD TRACEABLE TO IDMS STANDARD Performed By: #### 1 9123-9, 98183-9, LEATHA, CBCA #### [facility] ([id number]) [address] [place] [address] 89072 eGFR (CKD-EPI) NON-RACE DEPENDENT >90 Normal >59 [facility] Comment on above: Result Comment: Reported eGFR is based on the CKD-EPI 2020 equation that does not use a race coefficient. Performed By: #### 1 9123-9, 24721-3, LEATHA, CBCA #### [facility] ([id number]) [address] [place] [address] 17362 Glucose [Mass/Vol] 63 mg/dL Low 65-99 [facility] Comment on above: Performed By: #### 1 9123-9, 44273-8, LEATHA, CBCA #### [facility] ([id number]) [address] [place] [address] 99264 Potassium [Moles/Vol] 3.8 mmol/L Normal 3.5-5.0 [facility] Comment on above: Performed By: #### 1 9123-9, 23189-2, LEATHA, CBCA #### [facility] ([id number]) [address] [place] [address] 20118 Sodium [Moles/Vol] 137 mmol/L Normal 134-146 [facility] Comment on above: Performed By: #### 1 9123-9, 83263-8, BMP, CBCA #### [facility] ([id number]) [address] [place] [address] 90524 Urea nitrogen [Mass/Vol] 28 mg/dL High 5-27 [facility] Comment on above: Performed By: #### 1 9123-9, 60064-3, BMP, CBCA #### [facility] ([id number]) [address] [place] [address] 09185 CBC AND AUTO DIFFon 12-16-19 24 ABSOLUTE BASOPHIL 0.0 X10E9/L Normal 0.0-0.2 [facility] Comment on above: Performed By: #### 1 9123-9, 31935-4, BMP, CBCA #### [facility] ([id number]) [address] [place] [address] 30345 ABSOLUTE NEUTROPHIL 8.0 X10E9/L High 1.5-6.6 [facility] Comment on above: Performed By: #### 1 9123-9, 53712-2, BMP, CBCA #### [facility] ([id number]) [address] [place] [address] 83279 Basophils/100 WBC (Bld) 0.3 % Normal [facility] Comment on above: Performed By: #### 1 9123-9, 19832-4, BMP, CBCA #### [facility] ([id number]) [address] [place] [address] 45318 Eosinophils (Bld) [#/Vol] 0.0 10*3/uL Normal 0.0-0.4 [facility] Comment on above: Performed By: #### 1 9123-9, 78700-9, BMP, CBCA #### [facility] ([id number]) [address] [place] [address] 27501 Eosinophils/100 WBC (Bld) 0.2 % Normal [facility] Comment on above: Performed By: #### 1 9123-9, 31918-0, BMP, CBCA #### [facility] ([id number]) [address] [place] [address] 26552 Erythrocyte distribution width (RBC) [Ratio] 13.1 % Normal 11.5-15.0 [facility] Comment on above: Performed By: #### 1 9123-9, 00987-5, BMP, CBCA #### [facility] ([id number]) [address] [place] [address] 42659 Hematocrit (Bld) [Volume fraction] 40.6 % Normal 35-47 [facility] Comment on above: Performed By: #### 1 9123-9, 99909-8, BMP, CBCA #### [facility] ([id number]) [address] [place] [address] 48304 Hemoglobin (Bld) [Mass/Vol] 13.8 g/dL Normal 11.7-15.5 [facility] Comment on above: Performed By: #### 1 9123-9, 46129-0, BMP, CBCA #### [facility] ([id number]) [address] [place] [address] 57054 Lymphocytes (Bld) [#/Vol] 2.6 10*3/uL Normal 1.0-3.5 [facility] Comment on above: Performed By: #### 1 9123-9, 67219-8, BMP, CBCA #### [facility] ([id number]) [address] [place] [address] 15571 Lymphocytes/100 WBC (Bld) 23.2 % Normal [facility] Comment on above: Performed By: #### 1 9123-9, 98978-5, BMP, CBCA #### [facility] ([id number]) [address] [place] [address] 53219 MCH (RBC) [Entitic mass] 30.6 pg Normal 27-34 [facility] Comment on above: Performed By: #### 1 9123-9, 72626-9, BMP, CBCA #### [facility] ([id number]) [address] [place] [address] 78547 MCHC (RBC) [Mass/Vol] 33.9 g/dL Normal 32-36 [facility] Comment on above: Performed By: #### 1 9123-9, 16076-9, BMP, CBCA #### [facility] ([id number]) [address] [place] [address] 78654 MCV (RBC) [Entitic vol] 90 fL Normal 80-100 [facility] Comment on above: Performed By: #### 1 9123-9, 82501-7, BMP, CBCA #### [facility] ([id number]) [address] [place] [address] 61659 Monocytes (Bld) [#/Vol] 0.5 10*3/uL Normal 0-0.9 [facility] Comment on above: Performed By: #### 1 9123-9, 24830-4, BMP, CBCA #### [facility] ([id number]) [address] [place] [address] 38166 Monocytes/100 WBC (Bld) 4.8 % Normal [facility] Comment on above: Performed By: #### 1 9123-9, 68180-1, BMP, CBCA #### [facility] ([id number]) [address] [place] [address] 50024 Neutrophils/100 WBC (Bld) 71.5 % Normal [facility] Comment on above: Performed By: #### 1 9123-9, 03953-8, BMP, CBCA #### [facility] ([id number]) [address] [place] [address] Platelet mean volume (Bld) [Entitic vol] 8.6 fL Normal 7-12 [facility] Comment on above: Performed By: #### 1 9123-9, 43899-8, BMP, CBCA #### [facility] ([id number]) [address] [place] [address] Platelets (Bld) [#/Vol] 235 10*3/uL Normal 150-450 [facility] Comment on above: Performed By: #### 1 9123-9, 13556-9, BMP, CBCA #### [facility] ([id number]) [address] [place] [address] RBC COUNT 4.50 X10E12/L Normal 3.80-5.20 [facility] Comment on above: Performed By: #### 1 9123-9, 63721-8, BMP, CBCA #### [facility] ([id number]) [address] [address] 40373 WBC (Bld) [#/Vol] 11.1 10*3/uL High 4.0-11.0 [facility] Comment on above: Performed By: #### 1 9123-9, 70087-4, BMP, CBCA #### [facility] ([id number]) [address] [address] BRAIN WO CONTon 4 CT BRAIN WO CONT CT BRAIN WO CONT Exam: CT brain without contrast. CLINICAL HISTORY: Fall, pain, dizziness. TECHNIQUE: CT brain without intravenous contrast. COMPARISON: None FINDINGS: Mild age-appropriate cerebral atrophy. There is no evidence of acute intracranial bleeding, mass effect, or CT evidence of acute ischemia/infarct. The midline structures are intact, no midline shift. The ventricles and basal cisterns are within normal limits. The brainstem and cerebellum are unremarkable. The visualized intraorbital contents are unremarkable. The paranasal sinuses and mastoid air cells are well aerated. No acute osseous abnormality in the visualized skull base and calvarium. IMPRESSION: No acute intracranial pathology. All CT scans at this facility use dose modulation, iterative reconstruction, and/or weight based dosing when appropriate to reduce radiation dose to as low as reasonably achievable. Finalized by Greg Murillo on 12/16/2023 2:53 PM Normal [facility] CT CERVICAL SPINE WO CONTon 12-16-2023 CT CERVICAL SPINE WO CONT CT CERVICAL SPINE WO CONT History: Fall. Head and neck injury with pain Exam/Technique: Contiguous axial images are obtained of the cervical spine without intravenous contrast. Coronal and sagittal reconstructions were performed and reviewed. Automatic exposure control was utilized. Comparison: None Findings: No prevertebral soft tissue swelling, fracture or acute malalignment is identified. Age compatible multilevel degenerative disease. Posterior endplate spurring and calcified disc noted C3-4, C4-5 and C5-6 levels. Posterior element degeneration scattered throughout. No high-grade bony canal encroachment. The surrounding soft tissue structures are symmetric and show no fluid collections or reproducible structural pathology. Included portions of the lung apices show no acute abnormality. IMPRESSION: * No acute cervical spine pathology. All CT scans at this facility use dose modulation, iterative reconstruction, and/or weight based dosing when appropriate to reduce radiation dose to as low as reasonably achievable. Finalized by Luis Sandoval DO on 12/16/2023 3:01 PM Normal [facility] Glucose Glucometer (BldC) [M ass/Vol]on 12-16-2023 Glucose [Mass/Vol] 108 mg/dL High 65-99 [facility] Glucose [Mass/Vol] 64 mg/dL Low 65-99 [facility] Glucose [Mass/Vol] 77 mg/dL Normal 65-99 [facility] Glucose [Mass/Vol] 66 mg/dL Normal 65-99 [facility] MAGNESIUMon 12-16-2023 Magnesium [Mass/Vol] 2.2 mg/dL Normal 1.8-2.6 [facility] Comment on above: Performed By: #### 1 9123-9, 50509-7, BMP, CBCA #### [facility] ([id number]) [address] [address] 33939 Troponin I.cardiac High sens itivity method [Mass/Vol]on 12-16-2023 1 HOUR TROP I, HIGH SENSITIVITY 12 ng/L Normal <16 [facility] Comment on above: Performed By: #### 8 9579-7 #### [facility] ([id number]) [address] [place] [address] 73847 TROPONIN I, HIGH SENSITIVITY 11 ng/L Normal <16 [facility] Comment on above: Performed By: #### 1 9123-9, 82128-2, BMP, CBCA #### [facility] ([id number]) [address] [place] [address] [place] [address] URN MACROSCOPIC NURon 2023 BILIRUBIN FABIEN Negative Normal NEG [facility] Comment on above: Performed By: #### N UM #### [facility] ([id number]) [address] [place] [address] [place] [address] BLOOD/HGB FABIEN Negative Normal NEG [facility] Comment on above: Performed By: #### N UM #### [facility] ([id number]) [address] [place] [address] [place] [address] GLUCOSE FABIEN Negative Normal NEG [facility] Comment on above: Performed By: #### N UM #### [facility] ([id number]) [address] [address]77[address] KETONES FABIEN Negative Normal NEG [facility] Comment on above: Performed By: #### N UM #### [facility] ([id number]) [address] [place] [address] [place] [address] LEUKOCYTE ESTERASE FABIEN Negative Normal NEG [facility] Comment on above: Performed By: #### N UM #### [facility] ([id number]) [address] [place] [address]33[address] NITRITE FABIEN Negative Normal NEG [facility] Comment on above: Performed By: #### N UM #### [facility] ([id number]) [address] [place] [address] PH FABIEN 6.5 Normal 5.0-8.5 [facility] Comment on above: Performed By: #### N UM #### [facility] ([id number]) [address] [place] [address]79 PROTEIN FABIEN Negative Normal NEG [facility] Comment on above: Performed By: #### N UM #### [facility] ([id number]) [address] [address] SPECIFIC GRAVITY FABIEN 1.015 Normal 1.003-1.035 [facility] Comment on above: Performed By: #### N UM #### [facility] ([id number]) [address] [place] [address] 27618 UROBILINOGEN FABIEN 0.2 eu/dL Normal <1.1 [facility] Comment on above: Performed By: #### N UM #### [facility] ([id number]) [address] [address] Vital Signs Date Time Vital Sign Value Performing Clinician Faci lity 07-21-2024 14:-050 Body height 160 cm Lizett Wolff MAINTENANCE AND OPERATIONS SUPERVISOR Work Phone: [facility] 07-21-2024 14:19-0500 Body mass index (BMI) [Ratio] 18.39 kg/m2 Lizett Wolff MAINTENANCE AND OPERATIONS SUPERVISOR Work Phone: [facility] 07-21-2024 14:19-0500 Body temperature 98.49 [degF] Lizett Wolff MAINTENANCE AND OPERATIONS SUPERVISOR Work Phone: [facility] 07-21-2024 14:19-0500 Body weight 47.08 kg Lizett Wolff MAINTENANCE AND OPERATIONS SUPERVISOR Work Phone: [facility] 07-21-2024 14:19-0500 Diastolic blood pressure 70 mm[Hg] Lizett Gillilandholz MAINTENANCE AND OPERATIONS SUPERVISOR Work Phone: [facility] 07-21-2024 14:19-0500 Heart rate 92 /min Lizett Gillilandholz MAINTENANCE AND OPERATIONS SUPERVISOR Work Phone: [facility] 07-21-2024 14:19-0500 Respiratory rate 18 /min Lizett Gillilandholz MAINTENANCE AND OPERATIONS SUPERVISOR Work Phone: [facility] 07-21-2024 14:19-0500 SaO2% (BldA) [Mass fraction] 99 % Lizett Mahajanz MAINTENANCE AND OPERATIONS SUPERVISOR Work Phone: [facility] 07-21-2024 14:19-0500 Systolic blood pressure 110 mm[Hg] Lizett Mahajanz MAINTENANCE AND OPERATIONS SUPERVISOR Work Phone: [facility] 06-23-2024 10:01-0500 Body height 160 cm Mecca Naidu MAINTENANCE AND OPERATIONS SUPERVISOR Work Phone: [facility] 06-23-2024 10:01-0500 Body mass index (BMI) [Ratio] 17.93 kg/m2 Mecca Naidu MAINTENANCE AND OPERATIONS SUPERVISOR Work Phone: [facility] 06-23-2024 10:01-0500 Body weight 45.9 kg Mecca Naidu MAINTENANCE AND OPERATIONS SUPERVISOR Work Phone: [facility] 06-23-2024 10:01-0500 Diastolic blood pressure 78 mm[Hg] Mecca Naidu MAINTENANCE AND OPERATIONS SUPERVISOR Work Phone: [facility] 06-23-2024 10:01-0500 Heart rate 93 /min Mecca Naidu MAINTENANCE AND OPERATIONS SUPERVISOR Work Phone: [facility] 06-23-2024 10:01-0500 SaO2% (BldA) [Mass fraction] 98 % Mecca Naidu MAINTENANCE AND OPERATIONS SUPERVISOR Work Phone: [facility] 06-23-2024 10:01-0500 Systolic blood pressure 134 mm[Hg] Mecca Naidu MAINTENANCE AND OPERATIONS SUPERVISOR Work Phone: [facility] 05-24-2024 11:13-0400 Body height 160 cm Lizett Wolff MAINTENANCE AND OPERATIONS SUPERVISOR Work Phone: [facility] 05-24-2024 11:13-0400 Body mass index (BMI) [Ratio] 17.71 kg/m2 Lizett Wolff MAINTENANCE AND OPERATIONS SUPERVISOR Work Phone: [facility] 05-24-2024 11:13-0400 Body temperature 98.8 [degF] Lizett Mahajanz MAINTENANCE AND OPERATIONS SUPERVISOR Work Phone: [facility] 05-24-2024 11:13-0400 Body weight 45.36 kg Lizett Wolff MAINTENANCE AND OPERATIONS SUPERVISOR Work Phone: [facility] 05-24-2024 11:13-0400 Diastolic blood pressure 54 mm[Hg] Lizett Wolff MAINTENANCE AND OPERATIONS SUPERVISOR Work Phone: [facility] 05-24-2024 11:13-0400 Heart rate 97 /min Lizett Mahajanz MAINTENANCE AND OPERATIONS SUPERVISOR Work Phone: [facility] 05-24-2024 11:13-0400 Respiratory rate 18 /min Lizett Wolff MAINTENANCE AND OPERATIONS SUPERVISOR Work Phone: [facility] 05-24-2024 11:13-0400 SaO2% (BldA) [Mass fraction] 98 % Lizett Wolff MAINTENANCE AND OPERATIONS SUPERVISOR Work Phone: [facility] 05-24-2024 11:13-0400 Systolic blood pressure 88 mm[Hg] Lizett Mahajanz MAINTENANCE AND OPERATIONS SUPERVISOR Work Phone: [facility] 05-23-2024 15:02-0400 Body mass index (BMI) [Ratio] 17.66 kg/m2 Lopez Tijerina DO Work Phone: [facility] 05-23-2024 15:02-0400 Body weight 45.22 kg Lopez Tijerina DO Work Phone: [facility] 05-23-2024 15:02-0400 Diastolic blood pressure 72 mm[Hg] Christopher Breezy DO Work Phone: [facility] 05-23-2024 15:02-0400 Heart rate 104 /min Christopher Breezy DO Work Phone: [facility] 05-23-2024 15:02-0400 SaO2% (BldA) [Mass fraction] 96 % Christopher Breezy DO Work Phone: [facility] 05-23-2024 15:02-0400 Systolic blood pressure 117 mm[Hg] Christopher Breezy DO Work Phone: [facility] 04-12-2024 10:58-0400 Body height 160 cm Lizett New MAINTENANCE AND OPERATIONS SUPERVISOR Work Phone: [facility] 04-12-2024 10:58-0400 Body mass index (BMI) [Ratio] 17.47 kg/m2 Lizett Keyshawnz MAINTENANCE AND OPERATIONS SUPERVISOR Work Phone: [facility] 04-12-2024 10:58-0400 Body temperature 97.81 [degF] Lizett Keyshawnz MAINTENANCE AND OPERATIONS SUPERVISOR Work Phone: [facility] 04-12-2024 10:58-0400 Body weight 44.73 kg Lizett Keyshawnz MAINTENANCE AND OPERATIONS SUPERVISOR Work Phone: [facility] 04-12-2024 10:58-0400 Diastolic blood pressure 62 mm[Hg] Lizett Keyshawnz MAINTENANCE AND OPERATIONS SUPERVISOR Work Phone: [facility] 04-12-2024 10:58-0400 Heart rate 111 /min Lizett Aichholz MAINTENANCE AND OPERATIONS SUPERVISOR Work Phone: [facility] 04-12-2024 10:58-0400 Respiratory rate 18 /min Lizett Aichholz MAINTENANCE AND OPERATIONS SUPERVISOR Work Phone: [facility] 04-12-2024 10:58-0400 SaO2% (BldA) [Mass fraction] 98 % Lizett Keyshawnz MAINTENANCE AND OPERATIONS SUPERVISOR Work Phone: [facility] 04-12-2024 10:58-0400 Systolic blood pressure 88 mm[Hg] Lizett Wolff MAINTENANCE AND OPERATIONS SUPERVISOR Work Phone: 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 behavioral disturbance, psychotic disturbance, mood disturbance, or anxiety, unspecified timing of dementia onset (CMS/HCC); Type 2 diabetes mellitus treated with insulin (CMS/HCC); Mixed hyperlipidemia ([facility]/HCC) Start: 07-21-2024 End: 07-21-2024 Bamboo flowsheet Lizett Wolff MAINTENANCE AND OPERATIONS SUPERVISOR Work Phone: [facility] Start: 07-21-2024 End: 07-21-2024 Bamboo flowsheet Lizett Wolff MAINTENANCE AND OPERATIONS SUPERVISOR Work Phone: [facility] Start: 06-23-2024 End: 06-23-2024 Office outpatient visit 25 minutes Mecca Naidu MAINTENANCE AND OPERATIONS SUPERVISOR Work Phone: [facility] Comment on above: Moderate Alzheimer's dementia, unspecified timing of dementia onset, unspecified whether behavioral, psychotic, or mood disturbance or anxiety (CMS/HCC) (Primary Dx); Type 2 diabetes mellitus with other neurologic complication, with long-term current use of insulin (CMS/HCC) Start: 06-23-2024 End: 06-23-2024 ambulatory MECCA NAIDU Not Available Start: 05-24-2024 End: 05-24-2024 Office outpatient visit 25 minutes Lizett Wolff MAINTENANCE AND OPERATIONS SUPERVISOR Work Phone: [facility] Comment on above: Primary hypertension (CMS/HCC) (Primary Dx); Type 2 diabetes mellitus with hyperglycemia (CMS/HCC); Unspecified protein-calorie malnutrition (CMS/HCC); Weight loss, unintentional; Moderate Alzheimer's dementia without behavioral disturbance, psychotic disturbance, mood disturbance, or anxiety, unspecified timing of dementia onset (CMS/HCC) Start: 05-24-2024 End: 05-24-2024 ambulatory LIZETT AICHHOLZ Not Available Start: 05-23-2024 End: 05-23-2024 Office outpatient visit 25 minutes Lopez Teixeiraett DO Work Phone: [facility] [place] [facility] Comment on above: Moderate Alzheimer's dementia, unspecified timing of dementia onset, unspecified whether behavioral, psychotic, or mood disturbance or anxiety (CMS/HCC) (Primary Dx) Start: 05-23-2024 End: 05-23-2024 ambulatory CHRISTOPHER BREEZY Not Available Start: 05-23-2024 End: 05-23-2024 Bamboo flowsheet Akinopher Breezy DO Work Phone: [facility] [place] [facility] Start: 05-23-2024 End: 05-23-2024 Bamboo flowsheet Christtunger Breezy DO Work Phone: [facility] [employer] [facility] Start: 05-04-2024 End: 05-04-2024 Patient encounter procedure David Sears PhD Work Phone: [facility] Comment on above: Moderate late onset Alzheimer's dementia without behavioral disturbance, psychotic disturbance, mood disturbance, or anxiety (CMS/HCC) (Primary Dx); Major depressive disorder, recurrent, mild (HCC) (CMS/HCC); Borderline intellectual functioning Start: 05-04-2024 End: 05-04-2024 ambulatory LIZETT AICHHOLZ Not Available Start: 04-14-2024 End: 04-14-2024 ambulatory CHRISTOPHER BREEZY Not Available Start: 04-12-2024 End: 04-12-2024 Bamboo flowsheet Lizett Aichholz MAINTENANCE AND OPERATIONS SUPERVISOR Work Phone: [facility] Start: 04-12-2024 End: 04-12-2024 Bamboo flowsheet Lizett Aichholz MAINTENANCE AND OPERATIONS SUPERVISOR Work Phone: [facility] Start: 04-12-2024 End: 04-12-2024 Patient encounter procedure David Sears PhD Work Phone: [facility] Comment on above: Memory loss (Primary Dx) Start: 04-12-2024 End: 04-12-2024 ambulatory DAVID SEARS Not Available Start: 04-12-2024 End: 04-12-2024 Office outpatient visit 25 minutes Lizett Wolff MAINTENANCE AND OPERATIONS SUPERVISOR Work Phone: [facility] Comment on above: Type 2 diabetes jesse itus treated with insulin ([facility]/HCC) (Primary Dx); Primary hypertension ([facility]); Mixed hyperlipidemia ([facility]); Memory impairment Start: 04-12-2024 End: 04-12-2024 ambulatory LIZETT AICHHOLZ Not Available Start: 03-28-2024 End: 03-28-2024 ambulatory LOPEZ TIJERINA Not Available Start: 02-11-2024 End: 02-12-2024 ambulatory LIZETT AICHHOLZ Not Available Start: 02-10-2024 End: 02-10-2024 ambulatory LIZETT AICHHOLZ Not Available Start: 01-06-2024 End: 01-06-2024 ambulatory LIZETT AICHHOLZ Not Available Start: 12-16-2023 End: 12-17-2023 Emergency department patient visit [facility] Start: 12-07-2023 Patient encounter procedure Lizett Aichholz MAINTENANCE AND OPERATIONS SUPERVISOR Work Phone: [facility] Start: 12-07-2023 End: 12-07-2023 ambulatory LIZETT AICHHOLZ Not Available Start: 11-16-2023 End: 11-16-2023 ambulatory LIZETT AICHHOLZ Not Available Start: 11-09-2023 End: 11-09-2023 ambulatory LIZETT AICHHOLZ Not Available Procedures Date Procedure Procedure Detail Performing Clinician Start: 11-16-2023 Mammography Lizett Aichh lucoiz MAINTENANCE AND OPERATIONS SUPERVISOR Work Phone: Plan of Treatment Date Care Activity Detail Author Start: 02-16-2026 Glaucoma screening Diabetes: R etinopathy Screening [facility] Start: 04-12-2025 Urine screening for protein Diabetes: Urine Protein Screening [facility] Start: 02-09-2025 Pneumococcal Vaccine : 65+ Years (1 of 2 - PCV) Pneumococcal Vaccine: 65+ Years (1 of 2 - PCV) [facility] Comment on above: Postponed from 08/07 (Patient Refused) Start: 01-11-2025 Urine screening for protein Diabetes: Urine Protein Screening [facility] Start: 11-15-2024 Screening for malign ant neoplasm of breast Mammogram [facility] Start: 11-15-2024 Screening for malign ant neoplasm of colon Colorectal Cancer Screening [facility] Comment on above: Postponed from 08/07 (Patient Refused) Start: 08-25-2024 End: 08-25-2024 Patient encounter procedure 08/25/2024 10:30 AM EST Office Visit [facility] [address] [place] [address] Robert Dupree MD [address] [place] [address] [facility] Start: 08-24-2024 End: 08-24-2024 Patient encounter procedure 08/24/2024 3:00 PM EST Office Visit [facility] [address] [place] [address] Mecca Naidu NP [address] [place] [address] [facility] [address] Start: 07-21-2024 End: 07-21-2024 Patient encounter procedure [facility] Comment on above: Moderate Alzheimer's dementia without behavioral disturbance, psychotic disturbance, mood disturbance, or anxiety, unspecified timing of dementia onset (CMS/HCC) (Primary Dx); Primary hypertension (CMS/HCC); Type 2 diabetes mellitus treated with insulin (CMS/HCC); Mixed hyperlipidemia (CMS/HCC) Start: 07-21-2024 End: 07-21-2024 Patient encounter procedure 07/21/2024 10:30 AM EST Office Visit [facility] [address] [place] [phone] Lizett Wolff NP [address] [place] [phone] [facility] Start: 07-13-2024 Hemoglobin A1c measurement Diabetes: Hemoglobin A1C [facility] Start: 06-23-2024 End: 06-23-2024 Patient encounter procedure 06/23/2024 10:20 AM EST Office Visit [facility] [address] [place] [phone] Mecca Naidu NP [address] [place] [phone] [facility] [place] [facility] Start: 05-24-2024 End: 05-24-2024 Patient encounter procedure 05/24/2024 11:00 AM EDT Office Visit [facility] [address] [place] [phone] Lizett Wolff NP [address] [place] [address] [facility] Start: 05-23-2024 End: 05-23-2024 Patient encounter procedure [facility] [place] [facility] Comment on above: Arrived Start: 05-04-2024 End: 05-04-2024 Patient encounter procedure 05/04/2024 12:30 PM EDT [facility] [address] [facility] [address] [place] [phone] [facility] Start: 05-02-2024 End: 05-02-2024 Patient encounter procedure 05/02/2024 9:45 AM EDT Office Visit [facility] [place] [address] [place] [phone] Lopez Tijerina DO [address] [place] [address] [facility] Start: 04-14-2024 End: 04-14-2024 Professional / ancillary services management 04/14/2024 2:30 PM EDT Ancillary Procedure [facility] [address] [facility] [address] [place] [phone] [facility] Start: 04-13-2024 Hemoglobin A1c measurement Diabetes: Hemoglobin A1C [facility] Start: 04-12-2024 End: 04-12-2025 Comprehensive metabolic 2000 panel - Serum or Plasma Comprehensive metabolic panel Lab Routine Type 2 diabetes mellitus treated with insulin ([facility]) Expected: 04/12/2024 (Approximate), Expires: 04/12/2025 [facility] Work Phone: Comment on above: Expected: 04/12/2024 (Approximate), Expires: 04/12/2025 Start: 04-12-2024 End: 04-12-2025 Hemoglobin A1c/Hemoglobin.total in Blood Hemoglobin A1c Lab Routine Type 2 diabetes mellitus treated with insulin ([facility]) Expected: 04/12/2024 (Approximate), Expires: 04/12/2025 [facility] Comment on above: Expected: 04/12/2024 (Approximate), Expires: 04/12/2025 Start: 04-12-2024 End: 04-12-[address] [facility] Comment on above: Type 2 diabetes jesse itus treated with insulin ([facility]) (Primary Dx) Start: 1950 Screening for malign ant neoplasm of colon [facility] Payers Date Payer Category Payer Private Health Insurance [employer] [id number] 2018 Unknown [employer] [id number] 2018-Present [address] [place] [address] [id number] 2018 Unknown [id number] 2014 Medicare [id number] 2014 Medicare [id number] 1950 Unknown [id number] 2.16.840.1.065445.3.579.2. 1286 1949 Unknown [id number] 2.16.840.1.092450.3.579.2. 1286 1949 Unknown [id number] 2.16.840.1.893319.3.579.2. 1286 1949 Unknown [id number] 2.16.840.1.871309.3.579.2. 1259 1949 Unknown [id number] 2.16.840.1.134269.3.579.2. 1259 1949 Unknown [id number] 2.16.840.1.831881.3.579.2. 1259 1949 Unknown [id number] 2.16.840.1.475112.3.579.2. 1259 1949 Unknown [id number] 2.16.840.1.657508.3.579.2. 1259 1949 Unknown [id number] 2.16.840.1.254907.3.579.2. 1259 1949 Unknown [id number] 2.16.840.1.450685.3.579.2. 1259 1949 Unknown [id number] 2.16.840.1.972214.3.579.2. 1259 1949 Unknown [id number] 2.16.840.1.860338.3.579.2. 1259 1949 Unknown [id number] 2.16.840.1.999818.3.579.2. 1259 1949 Unknown [id number] 2.16.840.1.922191.3.579.2. 1259 1949 Unknown [id number] 2.16.840.1.150148.3.579.2. 1259 1949 Unknown [id number] 2.16.840.1.743731.3.579.2. 1259 1949 Unknown [id number] 2.16.840.1.703463.3.579.2. 1259 Social History Date Type Detail Facility Start: 11-02-2023 Tobacco smoking stat [facility] Never smoked tobacco [facility] Start: 11-02-2023 Tobacco use and exposure Smokeless t obacco non-user [facility] Start: 03-28-2024 End: 04-12-2024 Alcoholic beverage intake Lifetime non-drinker (finding) [facility] Start: 12-07-2023 End: 02-01-2024 History of Social function [facility] Start: 12-07-2023 End: 02-01-2024 [id number] Health Literacy [facility] How often do you nee d to have someone help you when you read instructions, pamphlets, or other written material from your doctor or pharmacy [SILS] Sometimes [facility] Within the last year , have you been afraid of your partner or ex-partner? No [facility] Are you now , , , , never or living with a partner? Never [facility] How often to you hav e a drink containing alcohol? 2-4 times a month [facility] How many standard dr inks containing alcohol do you have on a typical day? 1 or 2 [facility] How often do you hav e 6 or more drinks on 1 occasion? Never [facility] How hard is it for y ou to pay for the very basics like food, housing, medical care, and heating Hard [facility] Do you feel stress - tense, restless, nervous, or anxious, or unable to sleep at night because your mind is troubled all the time - these days [OSQ] Only a little [facility] (I/We) worried wheth er (my/our) food would run out before (I/we) got money to buy more. Sometimes true [facility] Start: 11-02-2023 Alcohol Comment caffine: coffee once daily [facility] Start: 1950 Sex assigned at Female [facility] Start: 11-25-2023 Gender identity Identifies as female gender (finding) [facility] Start: 11-25-2023 Sexual orientation Heterosexual (harjinder mcleod) [facility] Equipment Procedure Code Equipment Code Equipment Origin al Text Equipment Identifier Dates [id number] Start: 02-16-2024 End: 05-26-2024 Check blood suga rs twice a day . [id number] Start: 02-17-2024 End: 02-16-2025 Inject 1 each un trace the skin Daily [id number] Start: 02-16-2024 End: 05-26-2024 Clinical Notes 04-12-2024 to 07-21-2024 Lizett Wolff, MAINTENANCE AND OPERATIONS SUPERVISOR - 07/21/2024 2:20 PM ESTLisa New, MAINTENANCE AND OPERATIONS SUPERVISOR - 07/21/2024 7:38 AM ESTLisa New, MAINTENANCE AND OPERATIONS SUPERVISOR - 07/21/2024 7:38 AM ESTLisa New, MAINTENANCE AND OPERATIONS SUPERVISOR - 07/21/2024 7:38 AM ESTPatient Instructions Note Date & Type Note Facility 07-21-2024 History of Presen t illness Narrative Images from the original note were not included. Leandra Joyce is a 73 y.o. female presents with chief complaint of Hypertension HPI: Dexcom: 90 day GMI: 9.5%, range 20%, 26% high, 52% very high 30 8.5%, 34% in range, 32% high, 32% very high 14 day: GMI 7.7%, in range48%, 28% high, 20% very high 7 day: 50% in range, 26% high, 20% very high Hypertension This is a chronic problem. The current episode started more than 1 year ago. The problem is unchanged. The problem is controlled. Pertinent negatives include no anxiety, chest pain, headaches, orthopnea, palpitations, peripheral edema or shortness of breath. There are no associated agents to hypertension. Risk factors for coronary artery disease include diabetes mellitus, dyslipidemia, sedentary lifestyle and post-menopausal state. Past treatments include calcium channel blockers and KATERIN inhibitors. The current treatment provides significant improvement. Compliance problems include psychosocial issues. There is no history of kidney disease, CAD/PA or heart failure. Diabetes She has type 2 diabetes mellitus. Her disease course has been improving. There are no hypoglycemic associated symptoms. Pertinent negatives for hypoglycemia include no dizziness, headaches, nervousness/anxiousness, seizures or tremors. Pertinent negatives for diabetes include no chest pain, no polydipsia, no polyphagia and no polyuria. There are no hypoglycemic complications. Symptoms are improving. Pertinent negatives for diabetic complications include no heart disease, nephropathy or peripheral neuropathy. Risk factors for coronary artery disease include diabetes mellitus, dyslipidemia and sedentary lifestyle. Current diabetic treatment includes insulin injections. An KATERIN inhibitor/angiotensin II receptor ruth is being taken. She does not see a professor of environmental studies.Eye exam is not current. SUBJECTIVE: MEDICATIONS: Current Outpatient Medications Medication Instructions amLODIPine (NORVASC) 2.5 mg, Oral, Daily Basaglar KwikPen 17 Units, Subcutaneous, Daily Blood Glucose Monitoring Suppl (True Metrix Air Glucose Meter) w/Device kit 1 kit, Does not apply, Daily donepezil (ARICEPT) 10 mg, Oral, Nightly Drug [place] Unifine Pentips 31G X 6 MM misc USE DIRECTED ONCE DAILY glucose blood (True Metrix Blood Glucose Test) test strip Check blood sugars twice a day . insulin aspart (NOVOLOG, FIASP) 3 Units, Continuous lisinopril 20 mg, Oral, Daily metFORMIN (GLUCOPHAGE) 850 mg, Oral, 2 times daily with meals simvastatin (ZOCOR) 20 mg, Oral, Nightly ALLERGIES: No Known Allergies REVIEW OF SYMPTOMS: Review of Systems Constitutional: Negative for appetite change, chills and fever. HENT: Negative for congestion, ear pain and sore throat. Eyes: Negative for pain, discharge, redness and visual disturbance. Respiratory: Negative for cough, shortness of breath and wheezing. Cardiovascular: Negative for chest pain, palpitations, orthopnea and leg swelling. Gastrointestinal: Negative for abdominal pain, blood in stool, constipation, diarrhea, nausea and vomiting. Genitourinary: Negative for difficulty urinating, dysuria and frequency. Musculoskeletal: Negative for arthralgias, back pain, joint swelling and myalgias. Skin: Negative for rash and wound. Neurological: Negative for dizziness, tremors, seizures, syncope and headaches. Psychiatric/Behavioral: Negative for behavioral problems, self-injury and suicidal ideas. The patient is not nervous/anxious. Memory impairment Hematological: Does not bruise/bleed easily. Endocrine: Negative for polydipsia, polyphagia and polyuria. Allergic/Immunologic: Negative for environmental allergies and food allergies. PAST MEDICAL HISTORY Past Medical History: Diagnosis Date Closed nondisplaced dome fracture of left acetabulum (CMS/HCC) 11/09/2023 Diabetes mellitus (CMS/HCC) Difficulty sleeping Frequent urination at night Multiple joint problems History reviewed. No pertinent surgical history. family history includes Cancer in her brother and mother; Diabetes in her brother, father, and sister; Hypertension in her brother, father, mother, and sister. OBJECTIVE: Visit Vitals BP 110/70 (BP Location: Left arm, Patient Position: Sitting, BP Cuff Size: Adult long) Pulse 92 Temp 98.5 F (Temporal) Resp 18 Ht 5' 3 Wt 103 lb 12.8 oz SpO2 99% BMI 18.39 kg/m Smoking Status Never BSA 1.45 m Physical Exam Vitals and nursing note reviewed. Constitutional: General: She is not in acute distress. Appearance: Normal appearance. HENT: Head: Normocephalic and atraumatic. Right Ear: External ear normal. Left Ear: External ear normal. Nose: Nose normal. Mouth/Throat: Mouth: Mucous membranes are moist. Eyes: Extraocular Movements: Extraocular movements intact. Conjunctiva/sclera: Conjunctivae normal. Neck: Vascular: No carotid bruit. Cardiovascular: Rate and Rhythm: Normal rate and regular rhythm. Pulses: Normal pulses. Heart sounds: Normal heart sounds. Pulmonary: Effort: Pulmonary effort is normal. Breath sounds: Normal breath sounds. No wheezing or rales. Abdominal: General: Bowel sounds are normal. There is no distension. Palpations: Abdomen is soft. There is no mass. Tenderness: There is no abdominal tenderness. Musculoskeletal: General: Normal range of motion. Cervical back: Normal range of motion and neck supple. Right lower leg: No edema. Left lower leg: No edema. Lymphadenopathy: Cervical: No cervical adenopathy. Skin: General: Skin is warm and dry. Capillary Refill: Capillary refill takes 2 to 3 seconds. Findings: No rash. Neurological: General: No focal deficit present. Mental Status: She is alert and oriented to person, place, and time. Psychiatric: Mood and Affect: Mood normal. Behavior: Behavior normal. Thought Content: Thought content normal. Judgment: Judgment normal. ASSESSMENT AND PLAN: No follow-ups on file. Problem List Items Addressed This Visit Type 2 diabetes mellitus treated with insulin ([facility]) Under the care of dr dupree for this Check blood sugars daily, notify if <70 or >200. Take medications (pills or insulin) as directed. Monitor for s/s of hypoglycemia (sweaty, dizziness, nausea, vomiting, or shakiness). Watch for increase in thirst, urination, or appetite. Inspect feet frequently monitoring for open wounds , and also recommend yearly eye exam. Pt should attempt to remain as physically active as chronic conditions allow, as well as trying to follow a diet low in carbohydrates, and simple sugars. Improving, reviewed dexcom results, dr dupree is managing, 08/25/24 Primary hypertension ([facility]) Please check blood pressure daily and record DASH diet Limit caffeine Take medication as directed Contact office if chest pain, pressure, dizziness, shortness of breath, swelling legs Recommend slow position changes Difficulty with the above d/t dementia Current meds: lisinopril and amlodipine Mixed hyperlipidemia ([facility]) Is on statin Yearly labs and prn dose changes Moderate Alzheimer's dementia without behavioral disturbance, psychotic disturbance, mood disturbance, or anxiety ([facility]) - Primary Is taking aricept Continue with neurology Associated Problem(s): Mixed hyperlipidemia ([facility]) Is on statin Yearly labs and prn dose changes Associated Problem(s): Type 2 diabetes mellitus treated with insulin ([facility]) Under the care of dr dupree for this Check blood sugars daily, notify if <70 or >200. Take medications (pills or insulin) as directed. Monitor for s/s of hypoglycemia (sweaty, dizziness, nausea, vomiting, or shakiness). Watch for increase in thirst, urination, or appetite. Inspect feet frequently monitoring for open wounds , and also recommend yearly eye exam. Pt should attempt to remain as physically active as chronic conditions allow, as well as trying to follow a diet low in carbohydrates, and simple sugars. Improving, reviewed dexcom results, dr dupree is managing, 08/25/24 Associated Problem(s): Primary hypertension (CMS/HCC) Please check blood pressure daily and record DASH diet Limit caffeine Take medication as directed Contact office if chest pain, pressure, dizziness, shortness of breath, swelling legs Recommend slow position changes Difficulty with the above d/t dementia Current meds: lisinopril and amlodipine Associated Problem(s): Moderate Alzheimer's dementia without behavioral disturbance, psychotic disturbance, mood disturbance, or anxiety (CMS/HCC) Is taking aricept Continue with neurology documented in this encounter [facility] 07-21-2024 Instructions Lizett Wolff NP - 07/21/2024 2:20 PM EST Keep up good work documented in this encounter [facility] 06-23-2024 Instructions Mecca Naidu NP - 06/23/2024 10:20 AM EST - Increase donepezil to 10 mg by mouth once daily at bedtime documented in this encounter [facility] 05-24-2024 History of Presen t illness Narrative Associated Problem(s): Moderate Alzheimer's dementia without behavioral disturbance, psychotic disturbance, mood disturbance, or anxiety (CMS/HCC) Cont aricept and neurology fu Will refer to chronic disease mgmt and manager social services Help navigate this diagnosis, possibly help with though of AL or whichever is appropriate Associated Problem(s): Weight loss, unintentional Stable at this time Associated Problem(s): Primary hypertension (CMS/HCC) Low today, not symptomatic, however belief she took too many days worth of medication Associated Problem(s): Type 2 diabetes mellitus treated with insulin (CMS/HCC) Sugars are in the 200-300 range, but no low blood sugars Cont with leia, Concerns over alzheimer's dementia at giving self insulin Consider AL or NH, pt does not want NH Pt has not yet started the aricept Long acting (basaglar) 14 units at night Short acting (fiasp) 3units w/each meal Sees dr dupree next fu in aug. Sugars are averaging 292 currently 297 72% very high for glucose w/I 30 days 90 days has average at 282 7 day average 320 14 day average 323 She has came down down to 160s a couple times Since new reader at 7pm she has not been below 250 Images from the original note were not included. Leandra Joyce is a 73 y.o. female presents with chief complaint of No chief complaint on file. HPI: Pt here with niece Myrna for fu appt. She continues with Leia for diabetes mgmt, she does continue to have elevated glucose levels, there could be question about if she takes insulin properly reads are increased 200-300's no low blood sugars Her blood pressure today is low, however her niece does report that she looked at her pill packs and she is up to Thursday's pills. Neurology: had neuro psych testing, saw dr tijerina dx alzheimer's and started aricept SUBJECTIVE: MEDICATIONS: Current Outpatient Medications Medication Instructions amLODIPine (NORVASC) 2.5 mg, Oral, Daily Basaglar KwikPen 17 Units, Subcutaneous, Daily Blood Glucose Monitoring Suppl (True Metrix Air Glucose Meter) w/Device kit 1 kit, Does not apply, Daily donepezil (ARICEPT) 5 mg, Oral, Nightly Drug [place] Unilet Lancets 30G misc 1 each, Other, 2 times daily glucose blood (True Metrix Blood Glucose Test) test strip Check blood sugars twice a day . lisinopril 20 mg, Oral, Daily metFORMIN (GLUCOPHAGE) 850 mg, Oral, 2 times daily with meals pen needle 31G x 6 mm misc 1 each, Subcutaneous, Daily simvastatin (ZOCOR) 20 mg, Oral, Nightly ALLERGIES: No Known Allergies REVIEW OF SYMPTOMS: Review of Systems Constitutional: Negative for appetite change, chills and fever. HENT: Negative for congestion, ear pain and sore throat. Eyes: Negative for pain, discharge, redness and visual disturbance. Respiratory: Negative for cough, shortness of breath and wheezing. Cardiovascular: Negative for chest pain, palpitations and leg swelling. Gastrointestinal: Negative for abdominal pain, blood in stool, constipation, diarrhea, nausea and vomiting. Genitourinary: Negative for difficulty urinating, dysuria and frequency. Musculoskeletal: Negative for arthralgias, back pain, joint swelling and myalgias. Skin: Negative for rash and wound. Neurological: Negative for dizziness, tremors, seizures, syncope and headaches. Psychiatric/Behavioral: Positive for confusion. Negative for behavioral problems, self-injury and suicidal ideas. The patient is not nervous/anxious. Hematological: Does not bruise/bleed easily. Endocrine: Negative for polydipsia, polyphagia and polyuria. Allergic/Immunologic: Negative for environmental allergies and food allergies. PAST MEDICAL HISTORY Past Medical History: Diagnosis Date Closed nondisplaced dome fracture of left acetabulum ([facility]/HCC) 11/09/2023 Diabetes mellitus ([facility]) Difficulty sleeping Frequent urination at night Multiple joint problems No past surgical history on file. family history includes Cancer in her brother and mother; Diabetes in her brother, father, and sister; Hypertension in her brother, father, mother, and sister. OBJECTIVE: Visit Vitals BP 88/54 (BP Location: Left arm, Patient Position: Sitting, BP Cuff Size: Adult long) Pulse 97 Temp 98.8 F (Temporal) Resp 18 Ht 5' 3 Wt 100 lb SpO2 98% BMI 17.71 kg/m Smoking Status Never BSA 1.42 m Physical Exam Vitals and nursing note reviewed. Constitutional: General: She is not in acute distress. Appearance: Normal appearance. HENT: Head: Normocephalic and atraumatic. Right Ear: External ear normal. Left Ear: External ear normal. Nose: Nose normal. Mouth/Throat: Mouth: Mucous membranes are moist. Eyes: Extraocular Movements: Extraocular movements intact. Conjunctiva/sclera: Conjunctivae normal. Cardiovascular: Rate and Rhythm: Normal rate and regular rhythm. Pulses: Normal pulses. Heart sounds: Normal heart sounds. Pulmonary: Effort: Pulmonary effort is normal. Breath sounds: Normal breath sounds. Abdominal: General: Bowel sounds are normal. There is no distension. Palpations: Abdomen is soft. There is no mass. Tenderness: There is no abdominal tenderness. Musculoskeletal: General: Normal range of motion. Cervical back: Normal range of motion and neck supple. Skin: General: Skin is warm and dry. Capillary Refill: Capillary refill takes 2 to 3 seconds. Findings: No rash. Neurological: General: No focal deficit present. Mental Status: She is alert and oriented to person, place, and time. Psychiatric: Mood and Affect: Mood normal. Behavior: Behavior normal. Judgment: Judgment normal. Comments: Pt reports she does not want to live in long-term ASSESSMENT AND PLAN: No follow-ups on file. Problem List Items Addressed This Visit Primary hypertension (CMS/HCC) - Primary Low today, not symptomatic, however belief she took too many days worth of medication Weight loss, unintentional Stable at this time Unspecified protein-calorie malnutrition (CMS/HCC) Moderate Alzheimer's dementia without behavioral disturbance, psychotic disturbance, mood disturbance, or anxiety (CMS/HCC) Cont aricept and neurology fu Will refer to chronic disease mgmt and manager social services Help navigate this diagnosis, possibly help with though of AL or whichever is appropriate Other Visit Diagnoses Type 2 diabetes mellitus with hyperglycemia (CMS/HCC) documented in this encounter [facility] 05-23-2024 History of Presen t illness Narrative Images from the original note were not included. Chief complaint: Memory loss Subjective Leandra Joyce, 73 y.o., female who presents today for a neurological consult, referred by Lizett Wolff NP, for memory changes. Patient is here today for a follow up to go over her results for MRI of the brain and neuro psych evaluation. She is here with her niece. Her niece states she was a little upset when she got out of the neuro psych evaluation. She was worried she failed . Her niece states she is still having difficulty with her memory but this is no worse. Denies any hallucinations. Denies agitation but admits to frustration when she can't find words. They deny any new concerns at this time. Patient referred by PCP for a poor score on MOCA score 13/30 on 02/11/24. PCP wants a evaluation for possible dementia. The patient states her memory difficulty started June of 2022. Her sister at that time. They never and always lived together. She now lives at home alone. Her niece takes her places but she is able to care for herself at home. She takes care of the cooking, cleaning, and lawn care. She is able to handle her finances. She forgets what day it is. She will forget to take her medication. She is able to remember names. She will misplace things. She will on occasion have difficulty finding words but does not have difficulty with conversation. She is not driving. She denies getting lost. She denies hallucinations. She is sleeping ok at night. She gets 8-9 hours of sleep. She does get up to go to the bathroom but is able to go back to sleep. She naps during the day sometimes. She states that she feels rested the next day. She denies issues with balance or falls. Review of Systems Constitutional: Negative for appetite change, fatigue and fever. Respiratory: Negative for cough, shortness of breath and wheezing. Cardiovascular: Negative for chest pain, palpitations and leg swelling. Gastrointestinal: Negative for abdominal pain, constipation, diarrhea and nausea. Musculoskeletal: Negative for arthralgias, gait problem and myalgias. Neurological: Negative for dizziness, tremors, numbness and headaches. Memory loss Past Medical History: Diagnosis Date Closed nondisplaced dome fracture of left acetabulum (CMS/HCC) 11/09/2023 Diabetes mellitus (CMS/HCC) Difficulty sleeping Frequent urination at night Multiple joint problems No past surgical history on file. Family History Problem Relation Name Age of Onset Hypertension Mother Cancer Mother Diabetes Father Hypertension Father Diabetes Sister Hypertension Sister Diabetes Brother Hypertension Brother Cancer Brother Social History Tobacco Use Smoking status: Never Smokeless tobacco: Never Substance Use Topics Alcohol use: Never Comment: caffine: coffee once daily Allergies: Patient has no known allergies. Vitals: 05/23/24 1502 BP: 117/72 Pulse: 104 SpO2: 96% Body mass index is 17.66 kg/m . weight: 99 lb 11.2 oz Neurologic exam: Mental status: Awake, alert to person, place Language is fluent without aphasia. Attention is impaired Fund of knowledge is appropriate for level of education. 3 object recall 2/3 Luria 3 step impaired Previous [place] cognitive assessment was 13/30 Cranial nerves: CN II: Visual acuity is normal. Visual napier full to confrontation. CN III, IV, : pupils equal round and reactive to light. Extraocular movements intact. No ptosis present. CN V: Facial sensation is normal. CN VII: Full and symmetric facial movement. CN VIII: Hearing is normal to finger rub bilaterally: CN IX and X: Palate elevates symmetrically. CN XI: Shoulder shrug is normal bilaterally. CN XII: Tongue is midline without atrophy or fasciculation. Motor: Strength is 5/5 throughout. Bulk is normal. Sensory: Sensation is intact to light touch throughout Four extremities. Reflexes: Deep tendon reflexes are 2+ and symmetric throughout. Coordination: [id number] testing and rapid alternating movements are normal Gait: Normal Review and summary of old records: Neuropsych testing at [facility] on 05/04/2024: Current neuropsych evaluation demonstrates variable levels engagement and poor comprehension interfere with optimal performance and should be interpreted with caution. That said, findings are suggestive of severely deficient learning and memory visual-spatial and organizing and planning task, abstract reasoning, auditory attention/ working memory, verbal fluency, problem-solving/cognitive flexibility and complex visual divided attention. Comprehension was variable as well and worsened with tacks complexity. Overall findings raise strong suspicion for Alzheimer's dementia which is moderate in intensity. Mild depression may be contributing as well. MRI of the brain with and without contrast on 04/14/2024: Cerebral volume loss. Chronic small-vessel ischemic disease is noted in the [place] as well. Vitamin B12 and thyroid stimulating hormone on 03/29/2024: Normal Justin cognitive assessment at primary care's office on 02/11/2024: CT scan of the brain without contrast on 12/16/2023: No acute intracranial pathology CT of the cervical spine without contrast on 12/16/2023: No acute cervical spine pathology Assessment/Plan Diagnoses and all orders for this visit: Moderate Alzheimer's dementia, unspecified timing of dementia onset, unspecified whether behavioral, psychotic, or mood disturbance or anxiety (CMS/HCC) Cognitive impairment Type 2 diabetes mellitus with other neurologic complication, with long-term current use of insulin (CMS/HCC) It is my impression that the patient has memory impairment. I strongly suspect this may be indicative of a dementia process. Neuropsych testing also seems to indicate that this is a moderate Alzheimer's dementia. MRI imaging demonstrates volume loss which would be consistent with this. No other acute intracranial abnormalities were identified to account for symptoms. Vitamin B12 and thyroid stimulating hormone are normal. Certainly the patient has difficult to control diabetes and fluctuations of blood sugars related to diabetes may have negatively impact of the patient's cognition and could lead to a vascular type dementia. However, there is no evidence of a stepwise cognitive decline. The patient does have a somewhat child-like affect but does have a great support system in her niece who accompanied her to the appointment today. Plan: Start Aricept 5 mg p.o. daily. Side effects discussed in detail. Patient and niece understand and wished for the patient to proceed with treatment. No driving. The patient's niece drives her. The patient does not currently drive and is okay with his recommendation and understands the risks thereof Additional information was gathered from the patient's niece who is her POA and accompanied her to the visit today. Pt has been fully educated on their diagnosis, lab results, treatment options, follow up plan, return instructions, and discussion of mental health issues documented in this encounter [facility] 05-04-2024 History of Presen t illness Narrative Images from the original note were not included. Neuropsychology David Sears, PhD NEUROPSYCHOLOGICAL EVALUATION Leandra Joyce is a 73 y.o. female referred for neuropsychological evaluation to assist with facilitating and informing medical differential diagnosis and clinical decision-making. The following information was obtained during an interview with the patient and niece (POA), as well as review of available records. PRESENTING PROBLEM: Patient denied any concerns regarding cognition and memory. Niece reported that she is struggling with keeping up with schedules, dates, and times. Requiring more repetition to complete things. Otherwise, overall seems to remain independent in ADLs, housework, and maintaining her large lawn. Medication has been set up for [facility] due to forgetfulness. Manages finances with niece as she has mixed up her bills. Physical activity includes regular walks. Socially has become less engaged. Overall sleeping well. No pain complaints. Denied any prior neurological history. Initial head CT unremarkable. 04/14/24 brain MRI with cerebral volume loss and chronic small vessel ischemic disease in the central [place]. No family neurological history. Denied any psychiatric history. No history of alcohol/substance abuse. Reformed smoker. [place] language [place]. Completed 10 years of education. Retired sawmill worker. Resides alone, never , no children. Had previously lived with her sister her entire life and they had built a home together. Unfortunately, sister June 2022. MEDICAL HISTORY/MEDICATION: MEDICATIONS: Current Outpatient Medications Medication Instructions amLODIPine (NORVASC) 2.5 mg, Oral, Daily Basaglar KwikPen 17 Units, Subcutaneous, Daily Blood Glucose Monitoring Suppl (True Metrix Air Glucose Meter) w/Device kit 1 kit, Does not apply, Daily Continuous Glucose Manufacturing Plant Manager (Dexcom G7 Manufacturing Plant Manager) device 1 each, Does not apply, Daily Drug [place] Unilet Lancets 30G misc 1 each, Other, 2 times daily glucose blood (True Metrix Blood Glucose Test) test strip Check blood sugars twice a day . lisinopril 20 mg, Oral, Daily metFORMIN (GLUCOPHAGE) 850 mg, Oral, 2 times daily with meals pen needle 31G x 6 mm misc 1 each, Subcutaneous, Daily simvastatin (ZOCOR) 20 mg, Oral, Nightly ASSESSMENT: Presented to appointment on time, alert, and Ox2, temporally disoriented. Rapport easily established. Good eye contact. Socially appropriate during conversation and testing. Hearing adequate for current purposes. Ambulated independently. Purpose for current evaluation explained and patient agreed to participate. Variable levels of engagement at times is expected to have negatively interfered with optimal performance. Findings are therefore interpreted with caution. Vision/Visuoconstruction: Binocular near-point visual acuity 20/30. Visual napier full to confrontation. Visuoconstruction <1st %ile. Nonverbal abstract reasoning 7th %ile. Copy of a complex geometric design <1st %ile characterized by severe visuospatial distortion. Motor/Speed of Processing: Right-handed. Inventory Control Assistant strength <1st %ile, bilaterally. Speeded graphomotor transcoding 8th %ile. Attention/Working Memory: Auditory attention/working memory 1st %ile (4 digits forward, 2 digits backward, 3 digits during sequencing). Speeded visual scanning/attention 7th %ile. Speeded visual divided attention d/c. Very confused with task and began drawing her own sample items. Speech/Language: Expressive speech fluent and absent of paraphasic errors. Comprehension poor for task instructions. Understood very little. Required frequent repetition and simplification. Single-word reading 3rd %ile. Generative naming to phonemic and semantic cues <1st %ile. Confrontation naming 7th %ile. Verbal abstract reasoning 1st %ile. Learning and Memory: Learning of a word list 1st %ile (3-4-3-4-4), delayed recall 1st %ile. Recognition discriminability <1st %ile with several false-positive errors (<1st %ile). Forced-choice 14/16. 2 critical item errors. Immediate and delayed recall for prose passages <1st %ile. Recognition 3-9th %ile. Immediate recall for a variety of geometric figures 1st %ile, delayed 24th %ile. Recognition 10-16th %ile. Executive Functioning: Novel problem-solving and cognitive flexibility d/c. Emotional Functioning: Mild depression. Denied any thoughts of self-harm. FINDINGS AND RECOMMENDATIONS: CONCLUSIONS: 1. Estimated borderline pre-morbid intellectual functioning. 2. Preserved visual acuity without signs of visual field cut or neglect. 3. Severely deficient bilateral gross motor function. 4. Mild depression. OPINION: Current neuropsychological evaluation demonstrates variable levels of engagement and poor comprehension of task instructions, interfering with optimal performance. Findings are therefore interpreted with caution. That being said, findings suggest severely deficient learning and memory, visuospatial skills/visuospatial organization/planning, verba abstract reasoning, auditory attention/working memory, verbal fluency, problem-solving/cognitive flexibility, and complex visual divided attention. Comprehension was variable as well and worsened with task complexity. Overall findings raise strong suspicion for Alzheimer's dementia, moderate severity. Mild depression is likely contributing as well. RECOMMENDATIONS: Results and recommendations forwarded to treating physician for review during their next appointment. Unfortunately, returning to driving is not a realistic expectation. I am concerned about her ability to continue safely living on her own. Recommend moving in with family, family moving in with her, or looking into assisted living vs long-term for optimal safety. Niece to continue managing finances and medication. Continued monitoring and management of mood. Attention and memory strategies: Regularly and frequently review information that must be remembered. When encountering new information, link it in as many ways as possible to already known information. This strategy creates several avenues for remembering the information later. Extra repetition of new information, as well as rehearsal of new skills and note taking. New information should be presented in concise and succinct steps to maximize recall. Visual cues and reminders would also be beneficial, as would external memory aids such as smartphone or calendar/daily program planner. Active listening, such as repeating and summarizing information back to presenter when learning important information for future recall may be beneficial as opposed to simply passive listening. Establish a structured and consistent daily routine. Designate a single location to keep personal belongings such as keys, wallet, glasses, watch, and phone. Regular physical activity for optimal cognitive function, sleep, and stress management. Family may benefit from additional resources provided by the Alzheimer[employer] Association: www.alz.org. Neuropsychological re-evaluation as per discretion of family and treating physician. Thank you for allowing me to participate in the care of this individual. Please contact me with any questions at [phone]. documented in this encounter [facility] 04-12-2024 History of Presen t illness Narrative Images from the original note were not included. David Sears, PhD NEUROBEHAVIORAL STATUS EXAMINATION Leandra Joyce is a 73 y.o. female referred for neuropsychological evaluation to assist with facilitating and informing medical differential diagnosis and clinical decision-making. The following information was obtained during an interview with the patient and niece (POA), as well as review of available records. PRESENTING PROBLEM AND HISTORY Patient denied any concerns regarding cognition and memory. Nice reported that she is struggling with keeping up with schedules, dates, and times. Requiring more repetition to complete things. Otherwise, overall seems to remain independent in ADLs, housework, and maintaining her large lawn. Medication has been set up for [facility] due to forgetfulness. Manage his finances with niece as she has mixed up her bills before. Physical activity includes regular walks. Socially has become less engaged. Overall sleeping well. No pain complaints. Denied any prior neurological history. Initial head CT unremarkable. No family neurological history. Denied any psychiatric history. No history of alcohol/weapons abuse. Reformed smoker. [place] language [place]. Completed 10 years of education. Retired sawmill worker. Resides alone, never , no children. Had previously lived with her sister her entire life and they had built a home together. Unfortunately, sister June 2022. MEDICAL HISTORY/MEDICATION: Past Medical History: Diagnosis Date Closed nondisplaced dome fracture of left acetabulum ([facility]) 11/09/2023 Diabetes mellitus ([facility]) Difficulty sleeping Frequent urination at night Multiple joint problems MEDICATIONS: Current Outpatient Medications Medication Instructions amLODIPine (NORVASC) 2.5 mg, Oral, Daily Basaglar KwikPen 17 Units, Subcutaneous, Daily Blood Glucose Monitoring Suppl (True Metrix Air Glucose Meter) w/Device kit 1 kit, Does not apply, Daily Continuous Glucose Manufacturing Plant Manager (Dexcom G7 Manufacturing Plant Manager) device 1 each, Does not apply, Daily Drug [place]law Unilet Lancets 30G misc 1 each, Other, 2 times daily glucose blood (True Metrix Blood Glucose Test) test strip Check blood sugars twice a day . lisinopril 20 mg, Oral, Daily metFORMIN (GLUCOPHAGE) 850 mg, Oral, 2 times daily with meals pen needle 31G x 6 mm misc 1 each, Subcutaneous, Daily simvastatin (ZOCOR) 20 mg, Oral, Nightly INITIAL IMPRESSION AND PLAN: Memory loss: The patient will be scheduled for neuropsychological assessment, which will include tests for memory, reasoning, language, problem-solving, attention, and mood. Thank you for allowing me to participate in the care of this individual. Please contact me with any questions at [phone]. documented in this encounter [facility] 04-12-2024 History of Presen t illness Narrative Associated Problem(s): Memory impairment Cont with neurology and neuro psych Associated Problem(s): Type 2 diabetes mellitus treated with insulin (CMS/HCC) Sugars are in the 270 range, but no low blood sugars Is still waiting to see dr dupree referral, phone number given to Myrna Pinzon in 1 month Weight loss: will monitor Associated Problem(s): Primary hypertension (CMS/HCC) No dose changes Pt has lost 8lbs since last office visit 02/10/24 106lbs. Pt has been having high sugars. Average glucose in a 30 day period 272mg/dl With 58% very high. Average glucose for the last 3 days was 270mg/dl With 68% being very high Neuro appt at 2pm 2 step appt Sunita Images from the original note were not included. Leandra Joyce is a 73 y.o. female presents with chief complaint of No chief complaint on file. HPI: Has seen neurology, and also is awaiting an MRI Also has an appt today with neuropsych for dementia evaluation Hypertension This is a chronic problem. The current episode started more than 1 year ago. The problem is unchanged. The problem is controlled. Pertinent negatives include no blurred vision, chest pain, headaches, palpitations, peripheral edema, shortness of breath or sweats. There are no associated agents to hypertension. Risk factors for coronary artery disease include diabetes mellitus and post-menopausal state. Past treatments include calcium channel blockers and KATERIN inhibitors. Compliance problems include psychosocial issues. Diabetes She presents for her follow-up diabetic visit. She has type 2 diabetes mellitus. Her disease course has been fluctuating. Pertinent negatives for hypoglycemia include no dizziness, headaches, nervousness/anxiousness, seizures, sweats or tremors. Associated symptoms include weight loss. Pertinent negatives for diabetes include no blurred vision, no chest pain, no foot paresthesias, no polydipsia, no polyphagia, no polyuria and no weakness. There are no hypoglycemic complications. Symptoms are improving. Pertinent negatives for diabetic complications include no heart disease, nephropathy or peripheral neuropathy. Risk factors for coronary artery disease include diabetes mellitus, dyslipidemia and post-menopausal. Current diabetic treatment includes oral agent (dual therapy) and insulin injections. She is compliant with treatment most of the time. She participates in exercise daily. Her overall blood glucose range is >200 mg/dl. An KATERIN inhibitor/angiotensin II receptor ruth is being taken. Eye exam is current. SUBJECTIVE: MEDICATIONS: Current Outpatient Medications Medication Instructions amLODIPine (NORVASC) 2.5 mg, Oral, Daily Basaglar KwikPen 17 Units, Subcutaneous, Daily Blood Glucose Monitoring Suppl (True Metrix Air Glucose Meter) w/Device kit 1 kit, Does not apply, Daily Continuous Glucose Manufacturing Plant Manager (D[employer]com G7 Manufacturing Plant Manager) device 1 each, Does not apply, Daily Drug Reklaw Unilet Lancets 30G misc 1 each, Other, 2 times daily glucose blood (True Metrix Blood Glucose Test) test strip Check blood sugars twice a day . lisinopril 20 mg, Oral, Daily metFORMIN (GLUCOPHAGE) 850 mg, Oral, 2 times daily with meals pen needle 31G x 6 mm misc 1 each, Subcutaneous, Daily simvastatin (ZOCOR) 20 mg, Oral, Nightly ALLERGIES: No Known Allergies REVIEW OF SYMPTOMS: Review of Systems Constitutional: Positive for weight loss. Negative for appetite change, chills and fever. HENT: Negative for congestion, ear pain and sore throat. Eyes: Negative for blurred vision, pain, discharge, redness and visual disturbance. Respiratory: Negative for cough, shortness of breath and wheezing. Cardiovascular: Negative for chest pain, palpitations and leg swelling. Gastrointestinal: Negative for abdominal pain, blood in stool, constipation, diarrhea, nausea and vomiting. Genitourinary: Negative for difficulty urinating, dysuria and frequency. Musculoskeletal: Negative for arthralgias, back pain, joint swelling and myalgias. Skin: Negative for rash and wound. Neurological: Negative for dizziness, tremors, seizures, syncope, weakness and headaches. Psychiatric/Behavioral: Negative for behavioral problems, self-injury and suicidal ideas. The patient is not nervous/anxious. Memory impairment Hematological: Does not bruise/bleed easily. Endocrine: Negative for polydipsia, polyphagia and polyuria. Allergic/Immunologic: Negative for environmental allergies and food allergies. PAST MEDICAL HISTORY Past Medical History: Diagnosis Date Closed nondisplaced dome fracture of left acetabulum (CMS/HCC) 11/09/2023 Diabetes mellitus (CMS/HCC) Difficulty sleeping Frequent urination at night Multiple joint problems History reviewed. No pertinent surgical history. family history includes Cancer in her brother and mother; Diabetes in her brother, father, and sister; Hypertension in her brother, father, mother, and sister. OBJECTIVE: Visit Vitals BP 88/62 (BP Location: Left arm, Patient Position: Sitting, BP Cuff Size: Adult) Pulse (!) 111 Temp 97.8 F (Temporal) Resp 18 Ht 5' 3 Wt 98 lb 9.6 oz SpO2 98% BMI 17.47 kg/m Smoking Status Never BSA 1.41 m Physical Exam Vitals and nursing note reviewed. Constitutional: General: She is not in acute distress. Appearance: Normal appearance. HENT: Head: Normocephalic and atraumatic. Right Ear: External ear normal. Left Ear: External ear normal. Nose: Nose normal. Mouth/Throat: Mouth: Mucous membranes are moist. Eyes: Extraocular Movements: Extraocular movements intact. Conjunctiva/sclera: Conjunctivae normal. Neck: Vascular: No carotid bruit. Cardiovascular: Rate and Rhythm: Normal rate and regular rhythm. Pulses: Normal pulses. Heart sounds: Normal heart sounds. Pulmonary: Effort: Pulmonary effort is normal. Breath sounds: Normal breath sounds. No wheezing, rhonchi or rales. Chest: Chest wall: No tenderness. Abdominal: General: Bowel sounds are normal. There is no distension. Palpations: Abdomen is soft. There is no mass. Tenderness: There is no abdominal tenderness. Musculoskeletal: General: Normal range of motion. Cervical back: Normal range of motion and neck supple. Right lower leg: No edema. Left lower leg: No edema. Lymphadenopathy: Cervical: No cervical adenopathy. Skin: General: Skin is warm and dry. Capillary Refill: Capillary refill takes 2 to 3 seconds. Findings: No rash. Neurological: General: No focal deficit present. Mental Status: She is alert and oriented to person, place, and time. Psychiatric: Mood and Affect: Mood normal. Behavior: Behavior normal. Thought Content: Thought content normal. Judgment: Judgment normal. ASSESSMENT AND PLAN: No follow-ups on file. Problem List Items Addressed This Visit Type 2 diabetes mellitus treated with insulin (CMS/HCC) - Primary Sugars are in the 270 range, but no low blood sugars Is still waiting to see dr dupree referral, phone number given to Myrna Pinzon in 1 month Weight loss: will monitor Relevant Medications metFORMIN (Glucophage) 850 MG tablet Other Relevant Orders Comprehensive metabolic panel Hemoglobin A1c Primary hypertension (CMS/HCC) No dose changes Relevant Medications amLODIPine (Norvasc) 2.5 MG tablet lisinopril 20 MG tablet Mixed hyperlipidemia (CMS/HCC) Relevant Medications simvastatin (Zocor) 20 MG tablet Memory impairment Cont with neurology and neuro psych documented in this encounter [facility] Evaluation note Diagnosis Moderate Alzheimer's dementia, unspecified timing of dementia onset, unspecified whether behavioral, psychotic, or mood disturbance or anxiety (CMS/HCC)- Primary [facility]* Diagnosis Primary hypertension (CMS/HCC)- Primary Unspecified essential hypertension Type 2 diabetes mellitus with hyperglycemia (CMS/HCC) Unspecified protein-calorie malnutrition (CMS/HCC) Unspecified protein-calorie malnutrition Weight loss, unintentional Loss of weight Moderate Alzheimer's dementia without behavioral disturbance, psychotic disturbance, mood disturbance, or anxiety, unspecified timing of dementia onset (CMS/HCC) [facility]* Diagnosis Tachycardia- Primary Unspecified tachycardia Primary hypertension (CMS/HCC) Unspecified essential hypertension Type 2 diabetes mellitus treated with insulin (CMS/HCC) Mixed hyperlipidemia (CMS/HCC) Mixed hyperlipidemia Weight loss, unintentional Loss of weight Vitamin deficiency Unspecified vitamin deficiency Type 2 diabetes mellitus treated with insulin (CMS/HCC)- Primary Primary hypertension (CMS/HCC) Unspecified essential hypertension Tachycardia Unspecified tachycardia Encounter for screening mammogram for malignant neoplasm of breast Colon cancer screening declined Mixed hyperlipidemia (CMS/HCC) Mixed hyperlipidemia Encounter for subsequent annual wellness visit (AWV) in Medicare patient- Primary Primary hypertension (CMS/HCC) Unspecified essential hypertension Type 2 diabetes mellitus treated with insulin ([facility]/HCC) Mixed hyperlipidemia ([facility]/HCC) Mixed hyperlipidemia Primary hypertension ([facility]/HCC)- Primary Unspecified essential hypertension Type 2 diabetes mellitus treated with insulin ([facility]/) 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 ([facility]/HCC) Type 2 diabetes mellitus treated with insulin ([facility])- Primary 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 ([facility]/HCC) Primary hypertension ([facility]) Unspecified essential hypertension Mixed hyperlipidemia ([facility]) Mixed hyperlipidemia Memory impairment Memory loss Type 2 diabetes mellitus treated with insulin ([facility])- Primary Primary hypertension ([facility]/) Unspecified essential hypertension Mixed hyperlipidemia ([facility]/) Mixed hyperlipidemia Memory impairment Memory loss Primary hypertension ([facility])- Primary Unspecified essential hypertension Type 2 diabetes mellitus with hyperglycemia ([facility]) Unspecified protein-calorie malnutrition ([facility]) Unspecified protein-calorie malnutrition Weight loss, unintentional Loss of weight Moderate Alzheimer's dementia without behavioral disturbance, psychotic disturbance, mood disturbance, or anxiety, unspecified timing of dementia onset ([facility]) Moderate Alzheimer's dementia, unspecified timing of dementia onset, unspecified whether behavioral, psychotic, or mood disturbance or anxiety ([facility])- Primary Type 2 diabetes mellitus with other neurologic complication, with long-term current use of insulin ([facility]) documented in this encounter [facility]* Diagnosis Tachycardia- Primary Unspecified tachycardia Primary hypertension ([facility]) Unspecified essential hypertension Type 2 diabetes mellitus treated with insulin (/) Mixed hyperlipidemia ([facility]) Mixed hyperlipidemia Weight loss, unintentional Loss of weight Vitamin deficiency Unspecified vitamin deficiency Type 2 diabetes mellitus treated with insulin ([facility])- Primary Primary hypertension ([facility]) Unspecified essential hypertension Tachycardia Unspecified tachycardia Encounter for screening mammogram for malignant neoplasm of breast Colon cancer screening declined Mixed hyperlipidemia ([facility]) Mixed hyperlipidemia Encounter for subsequent annual wellness visit (AWV) in Medicare patient- Primary Primary hypertension ([facility]/HCC) Unspecified essential hypertension Type 2 diabetes mellitus treated with insulin (/HCC) Mixed hyperlipidemia ([facility]/HCC) Mixed hyperlipidemia Primary hypertension ([facility]/HCC)- Primary Unspecified essential hypertension Type 2 diabetes mellitus treated with insulin (/[facility]) 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 (/[facility]) Type 2 diabetes mellitus treated with insulin ([facility]/HCC)- Primary 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 ([facility]/HCC) Primary hypertension ([facility]/HCC) Unspecified essential hypertension Mixed hyperlipidemia ([facility]/HCC) Mixed hyperlipidemia Memory impairment Memory loss Type 2 diabetes mellitus treated with insulin ([facility]/HCC)- Primary Primary hypertension ([facility]/HCC) Unspecified essential hypertension Mixed hyperlipidemia ([facility]/HCC) Mixed hyperlipidemia Memory impairment Memory loss Primary hypertension ([facility]/HCC)- Primary Unspecified essential hypertension Type 2 diabetes mellitus with hyperglycemia ([facility]/HCC) Unspecified protein-calorie malnutrition ([facility]/HCC) Unspecified protein-calorie malnutrition Weight loss, unintentional Loss of weight Moderate Alzheimer's dementia without behavioral disturbance, psychotic disturbance, mood disturbance, or anxiety, unspecified timing of dementia onset ([facility]/HCC) Primary hypertension ([facility]/HCC)- Primary Unspecified essential hypertension Moderate Alzheimer's dementia without behavioral disturbance, psychotic disturbance, mood disturbance, or anxiety, unspecified timing of dementia onset ([facility]) Type 2 diabetes mellitus treated with insulin ([facility]/HCC) Mixed hyperlipidemia ([facility]/HCC) Mixed hyperlipidemia documented [facility]* Diagnosis Type 2 diabetes mellitus treated with insulin ([facility]/HCC)- Primary Primary hypertension ([facility]/HCC) Unspecified essential hypertension Mixed hyperlipidemia ([facility]/HCC) Mixed hyperlipidemia Memory impairment Memory loss documented [facility]* Diagnosis Memory loss- Primary documented [facility]* Diagnosis Moderate late onset Alzheimer's dementia without behavioral disturbance, psychotic disturbance, mood disturbance, or anxiety ([facility]/HCC)- Primary Major depressive disorder, recurrent, mild (HCC) ([facility]) Major depressive disorder, recurrent episode, mild Borderline intellectual functioning Other psychological or physical stress, not elsewhere classified documented in this encounter [facility] Summary Purpose Family History No Family History Records FoundNo Family History Records Found Advance Directives No Advanced Directives Records FoundNo Advanced Directives Records Found Additional Source Comments INFORMATION SOURCE (unrecogn ized section and content) DATE CREATED AUTHOR 12/18/2023 [facility] DATE CREATED AUTHOR AUTHOR'S ORGANIZ ATION 06/25/2024 [facility] [employer] Care Teams (unrecognized sec tion and content) Food Safety Scientist Relationship Specialty Start Date End Date Familia Wade MD [address] [place] [address] PCP - General Family Medicine 11/09/23 Lizett Wolff NP [address] [place] [phone] Nurse Practitioner Family Medicine 11/09/23 Cristela Vences, [facility] [employer] Counselor Family Medicine 12/14/23 Food Safety Scientist Relationship Specialty Start Date End Date Familia Wade MD [address] [place] [phone] PCP - General Family Medicine 11/09/23 Lizett Wolff NP [address] [place] [phone] Nurse Practitioner Family Medicine 11/09/23 Cristela Vences, [facility] [employer] Counselor Family Medicine 12/14/23 Food Safety Scientist Relationship Specialty Start Date End Date Familia Wade MD [address] [place] [phone] PCP - General Family Medicine 11/09/23 Lizett Wolff NP [address] [place] [phone] Nurse Practitioner Family Medicine 11/09/23 Cristela Vences [facility] [employer] Counselor Family Medicine 12/14/23 Food Safety Scientist Relationship Specialty Start Date End Date Familia Wade MD [address] [place] [phone] PCP - General Family Medicine 11/09/23 Lizett Wolff NP [address] [place] [phone] Nurse Practitioner Family Medicine 11/09/23 Cristela Vences, [facility] [employer] Counselor Family Medicine 12/14/23 Sena Luis MA Family Medicine 06/17/24 Food Safety Scientist Relationship Specialty Start Date End Date Familia Wade MD [address] [place] [phone] PCP - General Family Medicine 11/09/23 Lizett Wolff NP [address] [place] [phone] Nurse Practitioner Family Medicine 11/09/23 Cristela Vences, [facility] [employer] Counselor Family Medicine 12/14/23 Sena Luis MA Family Medicine 06/17/24 Food Safety Scientist Relationship Specialty Start Date End Date Familia Wade MD [address] [place] [phone] PCP - General Family Medicine 11/09/23 Lizett Wolff NP [address] [place] [phone] Nurse Practitioner Family Medicine 11/09/23 Cristela Vences, [facility] [employer] Counselor Family Medicine 12/14/23 Sena Luis MA Family Medicine 06/17/24 Food Safety Scientist Relationship Specialty Start Date End Date Familia Wade MD [address] [place] [phone] PCP - General Family Medicine 11/09/23 Lizett Wolff NP [address] [place] [phone] Nurse Practitioner Family Medicine 11/09/23 Sada Andrews LPN Registered Nurse Family Medicine 11/16/23 Cristela Vences, [facility] [employer] Counselor Family Medicine 12/14/23 Food Safety Scientist Relationship Specialty Start Date End Date Familia Wade MD [address] [place] [phone] PCP - General Family Medicine 11/09/23 Lizett Wolff NP [address] [place] [phone] Nurse Practitioner Family Medicine 11/09/23 Sada Andrews LPN Registered Nurse Family Medicine 11/16/23 Cristela Vences, [facility] [employer] Counselor Family Medicine 12/14/23 Food Safety Scientist Relationship Specialty Start Date End Date Familia Wade MD [address] [place] [phone] PCP - General Family Medicine 11/09/23 Lizett Wolff NP [address] [place] [phone] Nurse Practitioner Family Medicine 11/09/23 Sada Andrews LPN Registered Nurse Family Medicine 11/16/23 Cristela Vences, [facility] [employer] Counselor Family Medicine 12/14/23 Food Safety Scientist Relationship Specialty Start Date End Date Familia Wade MD [address] [place] [phone] PCP - General Family Medicine 11/09/23 Lizett Wolff NP [address] [place] [phone] Nurse Practitioner Family Medicine 11/09/23 Cristela Vences LSW [employer] Counselor Family Medicine 12/14/23 Reason for Visit (unrecogniz ed section and content) Reason Comments Memory Loss Reason Comments Hypertension FOR RECORDS PERTAINING TO PATIENTS WHO ARE OR HAVE BEEN ENROLLED IN A CHEMICAL DEPENDENCY/SUBSTANCEABUSE PROGRAM, SOME INFORMATION MAY BE OMITTED. This clinical summary was aggregated from multiple sources. Caution should be exercised in using it in the provision of clinical care. This summary normalizes information from multiple sources, and as a consequence, information in this document may materially change the coding, format and clinical context of patient data. In addition, data may be omitted in some cases. CLINICAL DECISIONS SHOULD BE BASED ON THE PRIMARY CLINICAL RECORDS. [facility] provides no warranty or guarantee of the accuracy or completeness of information in this document.
--- NOTE | 2024-08-17 17:28 | ED.GENADUL1 ---
HPI HPI - General Adult General Chief complaint: Extremity Problem, Nontraumatic Stated complaint: l arm/shoulder pain Time Seen by Provider: 08/17/24 17:11 Source: patient Mode of arrival: walk-in Limitations: no limitations History of Present Illness HPI narrative: Patient is a 74-year-old female with a history of diabetes who presents to the emergency department for pain in the left arm for the last week. She states that she had pain over the back of her left arm, down the medial forearm and into the hand. She denies any mechanism of injury or trauma. In the last 2 days she has developed a red vesicular rash extending down the back of the arm and over the forearm. There has been no drainage or red streaking. No other upper respiratory illness. Related Data Home Medications ?Medication ?Instructions ?Recorded ?Confirmed lisinopril 20 1 tab PO DAILY 11/09/23 08/17/24 mg-hydrochlorothiazide 12.5 mg tablet (Zestoretic) metformin 500 mg tablet 850 mg PO BID 11/09/23 08/17/24 simvastatin 20 mg tablet (Zocor) 20 mg PO DAILY 11/09/23 08/17/24 amlodipine 2.5 mg tablet 2.5 mg PO DAILY 01/13/24 08/17/24 insulin glargine 100 unit/mL (3 14 unit subcut .hs 01/13/24 08/17/24 mL) subcutaneous pen (Basaglar KwikPen U-100 Insulin) donepezil 10 mg tablet 10 mg PO .HS 08/17/24 08/17/24 insulin aspart 3 unit subcut TID 08/17/24 08/17/24 (niacinamide)(U-100) 100 unit/mL(3 mL) subcutaneous pen (Fiasp FlexTouch U-100 Insulin) Previous Rx's ?Medication ?Instructions ?Recorded acyclovir 800 mg tablet See Rx Instructions .Route 08/17/24 .COMPLEX #35 tabs hydrocodone 5 mg-acetaminophen 325 1 tab PO Q6H PRN pain 5 days #20 08/17/24 mg tablet tabs prednisone 20 mg tablet 40 mg (2 x 20 mg) PO DAILY 3 days 08/17/24 #6 tabs Allergies Allergy/AdvReac Type Severity Reaction Status Date / Time No Known Drug Allergies Allergy Verified 08/17/24 17:05 Opioid HPI Opioid Management Most Recent Opioid Data: No Data to Display Review of Systems ROS Constitutional Denies: fever or chills Ears, nose, mouth, and throat Denies: nasal congestion Respiratory Denies: shortness of breath Gastrointestinal Denies: nausea or vomiting Integumentary/Breast Reports: rash, redness, skin pain and skin tenderness; Denies: skin swelling Neurological Denies: numbness in extremities or weakness in extremities Hematologic/Lymphatic Denies: easy bruising or easy bleeding PFSH PFS Medical History (Updated 08/17/24 @ 17:25 by XIOMY Matamoros) High cholesterol ?E78.00 - Pure hypercholesterolemia, unspecified (ICD-10) Hypertension ?I10 - Essential (primary) hypertension (ICD-10) Diabetes ?E11.9 - Type 2 diabetes mellitus without complications (ICD-10) Social History Little interest or pleasure in doing things: not at all Feeling down, depressed, or hopeless: not at all Exam Narrative Exam Narrative: Gen.: Awake, alert, in no distress Head: Normocephalic, atraumatic ENT: Moist mucous membranes Respiratory: No respiratory distress Extremities: Erythematous linear vesicular rash extending down the posterior aspect of the left arm into the left medial forearm. No red streaking, open wounds or drainage Psych: Normal mood and affect Neuro: No focal neuro deficit Skin: Warm, dry, intact Constitutional Vital Signs, click to edit/add: Last Vital Signs Temp 97.4 F L 08/17/24 16:59 Pulse 110 H 08/17/24 16:59 Resp 18 08/17/24 16:59 BP 142/95 H 08/17/24 16:59 Pulse Ox 98 08/17/24 16:59 O2 Del Method Room Air 08/17/24 16:59 Course Vital Signs Vital signs: Vital Signs Temperature 97.4 F L 08/17/24 16:59 Pulse Rate 110 H 08/17/24 16:59 Respiratory Rate 18 08/17/24 16:59 Blood Pressure 142/95 H 08/17/24 16:59 Pulse Oximetry 98 08/17/24 16:59 Oxygen Delivery Method Room Air 08/17/24 16:59 Temperature 97.4 F L 08/17/24 16:59 Pulse Rate 110 H 08/17/24 16:59 Respiratory Rate 18 08/17/24 16:59 Blood Pressure 142/95 H 08/17/24 16:59 Pulse Oximetry 98 08/17/24 16:59 Oxygen Delivery Method Room Air 08/17/24 16:59 Medical Decision Making MDM Narrative Medical decision making narrative: Exam is consistent with shingles. Patient placed on acyclovir, analgesics and a short course of low-dose steroids. Follow-up with PCP and return to the ER if symptoms change or worsen SUPERVISED APC VISIT, PHYSICIAN ATTESTATION: Based on the medical record the care appears appropriate. ? Medical Records Medical records reviewed: Yes I reviewed the patient's medical records Lab Data Lab results reviewed: Yes I reviewed the patient's lab results Discharge Plan Discharge Chief Complaint: Extremity Problem, Nontraumatic Clinical Impression: Left arm pain, Shingles Patient Disposition: Home, Self-Care Time of Disposition Decision: 17:24 Condition: Good Prescriptions / Home Meds: New hydrocodone-acetaminophen 5-325 mg tablet 1 tab PO Q6H PRN (Reason: pain) 5 Days Qty: 20 0RF Rx Instructions: DX: B02.9 prednisone 20 mg tablet 40 mg PO DAILY 3 Days Qty: 6 0RF acyclovir 800 mg tablet See Rx Instructions .ROUTE .COMPLEX Qty: 35 0RF Rx Instructions: 800 mg orally 5 times a day for 7 days No Action metformin 500 mg tablet 850 mg PO BID lisinopril-hydrochlorothiazide [Zestoretic] 20-12.5 mg tablet 1 tab PO DAILY simvastatin [Zocor] 20 mg tablet 20 mg PO DAILY insulin glargine [Basaglar KwikPen U-100 Insulin] 100 unit/mL (3 mL) insulin pen 14 unit SUBCUT .hs amlodipine 2.5 mg tablet 2.5 mg PO DAILY Fiasp FlexTouch U-100 Insulin 100 unit/mL (3 mL) insulin pen 3 unit subcut TID donepezil 10 mg tablet 10 mg PO .HS Print Language: Bulgarian Instructions: Ros (ED) Referrals: Lizett Wolff INJURY PREVENTION COORDINATOR [Primary Care Provider] - 1 week
[2024-08-17] MEDS: ACYCLOVIR 200 MG CAPSULE 800 MG PO (17:44)
[2024-08-17] MEDS: PREDNISONE 20 MG TABLET 40 MG PO (17:45)
[2024-08-17] MEDS: HYDROCODONE/ACET 5-325 MG TABLET 1 TAB PO (17:45)
[2024-08-17] MEDS: HYDROCODONE/ACET 5-325 MG TABLET 2 TAB PO (17:46)
== END 2024-08-17 17:56 | disposition home or self-care (01) ==
PROVIDERS: Emergency Provider Emergency Medicine; PCP Nurse Practitioner
DX: B02.9 Zoster without complications (principal); M79.602 Pain in left arm; E11.9 Type 2 diabetes mellitus without complications; Z79.84 Long term (current) use of oral hypoglycemic drugs; Z79.4 Long term (current) use of insulin
CPT/HCPCS: 99284; J7512